=== PATIENT | male | born 1960 | race Caucasian/White ===

== ENCOUNTER 2019-10-09 11:20 | Outpatient (CLI) | payer OTHER, SELFPAY ==
--- NOTE | ~2019-10-09 | XR_ITS ---
EXAMINATION: XR chest 2V DATE: 10/09/2019 11:36 INDICATION: Shortness of breath TECHNIQUE: Frontal and lateral views of the chest are obtained COMPARISON: None available FINDINGS: The lungs are free of acute opacities. There is no pleural effusion or pneumothorax. The ca rdiomediastinal silhouette is normal. There are bridging osteophytes at multiple levels in the spine, consistent with diffuse idiopathic skeletal hyperostosis (DISH). IMPRESSION: 1. No acute cardiopulmonary abnormality. Reviewed, dictated and finalized at location A.
== END 2019-10-09 11:21 | disposition home or self-care (01) ==
LOC: ANHIMG 11:27
PROVIDERS: PCP Internal Medicine; Visit Provider Nurse Practitioner
DX: R06.02 Shortness of breath (principal)
CPT/HCPCS: 71046

== ENCOUNTER 2019-11-04 06:38 | Outpatient (CLI) | payer OTHER, SELFPAY ==
--- NOTE | 2019-11-04 07:13 | ECG_ITS ---
Measurements Intervals [place] Rate: 63 P: 52 NE: 178 QRS: 34 QRSD: 92 T: 36 QT: 321 QTc: 329 Interpretive Statements SINUS RHYTHM BASELINE ARTIFACT- I, III, AVL, AVF NORMAL ECG Electronically Signed On 11-04-2019 8:45:45 CDT by Oumar Chirinos D.O.
--- NOTE | 2019-11-04 07:13 | EST_ITS ---
Patient Info Name: Harley Hernandez Age: 59 years : 1960 Gender: Male Ht: 68 in Wt: 215 lbs BSA: 2.20 m2 HR: 71 bpm BP: 131 / 90 mmHg Heart Rhythm: Sinus Rhythm Exam Date: 11/04/2019 7:54 AM Exam Location: [facility] Patient Status: Outpatient Admit Date: 11/04/2019 Staff Ordering Physician: Norah May NP Cyanide Pot Hardener: Carmen Braun RDCS Attending Provider: Norah May NP Referring Physician: Lalo MANCILLA; Exercise Technologist: Michaela Panda RDCS Exercise Physician: Oumar Chirinos DO Exam Type: CA stress echo Study Info Indications R06.02 - Shortness of breath Treadmill exercise stress echocardiogram is performed. Summary 1. 1. Negative Noe exercise stress test for ischemic ST changes by ECG criteria. 2. 2. Good functional capacity, achieving 8.9 METs of workload. 3. 3. Hypertensive response to exercise. 4. 4. Appropriate HR response to exercise. 5. 5. Appropriate HR recovery at 1 minute post exercise. 6. 6. Negative stress echocardiogram for ischemia by wall motion analysis. 7. 7. Patient informed of the above results. Stress Echo Findings Left Ventricle Appropriate increase in LV endocardial thickening with systole. Appropriate augmentation of contractility with systole. No wall motion abnormality. Left Ventricle Normal LV systolic function, no wall motion abnormality. Protocol: Noe Stress ECG Details Stage: REST Duration (min): 2 min : 26 sec Speed (mph): 0.0 Grade (%): 0 HR (bpm): 68 SBP (mmHg): 131 DBP (mmHg): 90 METS: --- Stage: REST Duration (min): 25 min : 55 sec Speed (mph): 0.0 Grade (%): 0 HR (bpm): 78 SBP (mmHg): 131 DBP (mmHg): 90 METS: --- Stage: STAGE 1 Duration (min): 1 min : 0 sec Speed (mph): 1.7 Grade (%): 10 HR (bpm): 101 SBP (mmHg): 131 DBP (mmHg): 90 METS: --- Stage: STAGE 1 Duration (min): 2 min : 0 sec Speed (mph): 1.7 Grade (%): 10 HR (bpm): 112 SBP (mmHg): 131 DBP (mmHg): 90 METS: --- Stage: STAGE 1 Duration (min): 3 min : 0 sec Speed (mph): 1.7 Grade (%): 10 HR (bpm): 116 SBP (mmHg): 180 DBP (mmHg): 94 METS: --- Stage: STAGE 2 Duration (min): 1 min : 0 sec Speed (mph): 2.5 Grade (%): 12 HR (bpm): 128 SBP (mmHg): 180 DBP (mmHg): 94 METS: --- Stage: STAGE 2 Duration (min): 2 min : 0 sec Speed (mph): 2.5 Grade (%): 12 HR (bpm): 140 SBP (mmHg): 180 DBP (mmHg): 94 METS: --- Stage: STAGE 2 Duration (min): 3 min : 0 sec Speed (mph): 2.5 Grade (%): 12 HR (bpm): 148 SBP (mmHg): 220 DBP (mmHg): 107 METS: --- Stage: STAGE 3 Duration (min): 1 min : 0 sec Speed (mph): 3.4 Grade (%): 14 HR (bpm): 157 SBP (mmHg): 219 DBP (mmHg): 107 METS: --- Stage: STAGE 3 Duration (min): 1 min : 1 sec Speed (mph): 0.0 Grade (%): 0 HR (bpm): 157 SBP (mmHg): 219 DBP (mmHg): 107 METS: ---
== END 2019-11-04 06:39 | disposition home or self-care (01) ==
PROVIDERS: PCP Internal Medicine; Visit Provider Nurse Practitioner
DX: R06.02 Shortness of breath (principal); R05 Cough
CPT/HCPCS: 93005; 93351

== ENCOUNTER 2020-08-27 17:31 | Outpatient (CLI) | payer OTHER, SELFPAY | END 2020-08-27 17:32 | disposition home or self-care (01) | LOC: ANHCOVIDVC 17:31 | PROVIDERS: PCP Internal Medicine | DX: Z23 Encounter for immunization (principal) | CPT/HCPCS: 0001A; 91300 ==

== ENCOUNTER 2020-09-17 17:08 | Outpatient (CLI) | payer OTHER, SELFPAY | END 2020-09-17 17:09 | disposition home or self-care (01) | LOC: ANHCOVIDVC 17:08 | PROVIDERS: PCP Internal Medicine | DX: Z23 Encounter for immunization (principal) | CPT/HCPCS: 0002A; 91300 ==

== ENCOUNTER → 2020-12-06 15:58 | Outpatient (CLI) | payer OTHER, SELFPAY ==
--- NOTE | ~2020-12-06 | XR_ITS ---
EXAMINATION: XR knee LT min 4V DATE: 12/06/2020 16:25 INDICATION: Anteromedial left knee pain TECHNIQUE: Weight bearing anteroposterior and Joshi, sunrise, and flexed lateral views of the lef t knee were obtained COMPARISON: None. FINDINGS: Alignment is normal. No fracture. Joint spaces are normal. No joint effusion. Enthesophyte at the pr oximal pole of the patella. Soft tissues are unremarkable. IMPRESSION: 1.. Proximal patellar enthesophyte. Otherwise normal left knee radiographs. Reviewed, dictated and finalized at location A.
== END ==
PROVIDERS: PCP Internal Medicine; Visit Provider Clinical Nurse Specialist
DX: M25.569 Pain in unspecified knee (principal); M76.52 Patellar tendinitis, left knee
CPT/HCPCS: 73564

== ENCOUNTER 2021-02-25 16:34 | Emergency (ER) | payer OTHER, SELFPAY ==
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
[2021-02-25 16:37] VITALS: BP 184/90; PULSE 78; RESP 15; TEMP 36.6; O2SAT 98
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
[2021-02-25] MEDS: IBUPROFEN 600 MG TABLET PO (17:31)
[2021-02-25 18:41] VITALS: BP 174/103; PULSE 75; RESP 16; O2SAT 98
== END 2021-02-25 18:42 | disposition home or self-care (01) ==
PROVIDERS: Emergency Provider Emergency Medicine; PCP Internal Medicine
DX: S16.1XXA Strain of muscle, fascia and tendon at neck level, initial encounter (principal); E78.2 Mixed hyperlipidemia; E11.9 Type 2 diabetes mellitus without complications; M47.812 Spondylosis without myelopathy or radiculopathy, cervical region; I51.7 Cardiomegaly; M19.012 Primary osteoarthritis, left shoulder; M19.011 Primary osteoarthritis, right shoulder; Z79.84 Long term (current) use of oral hypoglycemic drugs; V49.40XA Driver injured in collision with unspecified motor vehicles in traffic accident, initial encounter
CPT/HCPCS: 70450; 71046; 72125; 73030; 99284; A9270

== ENCOUNTER 2021-03-29 17:08 | Outpatient (CLI) | payer OTHER, SELFPAY ==
--- NOTE | ~2021-03-29 | XR_ITS ---
XR chest 2V DATE: 03/29/2021 17:26 INDICATION: Cough. Nasal infection for 2 weeks. Occasional smoker. TECHNIQUE: PA and lateral views COMPARISON: 02/25/2021 AP and lateral chest 10/08/2021 view chest FINDINGS: Heart size is within normal range. Is aortic arch calcification and minimal aortic unfoldin g. No hilar or mediastinal enlargement. No pulmonary infiltrate or consolidation, pleural effusion or pulmonary vascular congestion or pneumo thorax. Diffuse idiopathic skeletal hyperostosis of the thoracic spine. IMPRESSION: No active cardiopulmonary disease Reviewed, dictated and finalized at location A.
== END 2021-03-29 17:09 | disposition home or self-care (01) ==
LOC: ANHIMG 17:12
PROVIDERS: PCP Internal Medicine; Visit Provider Nurse Practitioner
DX: R05.9 Cough, unspecified (principal); R06.02 Shortness of breath; M48.14 Ankylosing hyperostosis [Forestier], thoracic region
CPT/HCPCS: 71046

== ENCOUNTER 2021-04-08 13:43 | Outpatient (CLI) | payer OTHER, SELFPAY ==
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
== END 2021-04-08 13:44 | disposition home or self-care (01) ==
LOC: ANHIMG 13:52
PROVIDERS: PCP Internal Medicine; Visit Provider Nurse Practitioner
DX: M51.34 Other intervertebral disc degeneration, thoracic region (principal); M51.36 Other intervertebral disc degeneration, lumbar region
CPT/HCPCS: 72100

== ENCOUNTER 2021-07-15 11:48 | Emergency (ER) | payer OTHER, SELFPAY ==
[2021-07-15] VITALS (23 sets, daily range): BP systolic 120–164; BP diastolic 67–98; PULSE 63–90; RESP 13–28; TEMP 36.7; O2SAT 96–98
--- NOTE | 2021-07-15 13:56 | ECG_ITS ---
Measurements Intervals [place] Rate: 65 P: 42 NM: 184 QRS: 26 QRSD: 84 T: 31 QT: 373 QTc: 389 Interpretive Statements SINUS RHYTHM NORMAL ECG Electronically Signed On 07-15-2021 15:54:15 BOBBIN DUMPER by Oumar Chirinos D.O.
--- NOTE | 2021-07-15 14:26 | ED.GENADULT ---
HPI - General Adult General Chief complaint: Recheck/Abnormal Lab/Rx Stated complaint: high bp Time Seen by Provider: 07/15/21 13:07 Source: patient and family History of Present Illness HPI narrative: 61-year-old male history of hypertension presented to the emergency department for elevated blood pressures. Patient states since he had Covid on 06/26 that his blood pressures have been running higher. Patient states that he has had some intermittent leg swelling which he attributed to his blood pressures. Upon arrival in the emergency department patient denies any complaints at this time. Related Data Home Medications Medication Instructions Recorded Confirmed blood-glucose meter #1 each 05/01/19 05/03/21 Allergies Allergy/AdvReac Type Severity Reaction Status Date / Time No Known Allergies Allergy Verified 07/15/21 12:04 Review of Systems Review of Systems: CONSTITUTIONAL: Denies fever, chills, or sweats. EYES: Denies visual changes, redness, or discharge. ENT: Denies rhinorrhea, congestion, sore throat, or otalgia. CARDIOVASCULAR: Denies chest pain, palpitations. Has had some intermittent lower extremity swelling. RESPIRATORY: Denies cough or dyspnea. GASTROINTESTINAL: Denies abdominal pain, nausea, vomiting, or diarrhea. GENITOURINARY: Denies dysuria or hematuria. SKIN: Denies rash or itching. MUSCULOSKELETAL: Denies back pain, joint pain, or myalgia. NEUROLOGIC: Denies headache, numbness, or weakness. All systems reviewed & are unremarkable except as noted in HPI and below PMFSH Past Medical History Medical History Combined hyperlipidemia Tinea cruris Type 2 diabetes mellitus without complication, without long-term current use of insulin Family History Family History Mother Family history of osteoarthritis Hypertension Father Family history of heart disease in male family member before age 55 Diabetes mellitus Social History Social History Smoking status: Never smoker Tobacco type: cigars Alcohol intake: current Alcohol use details: occasional Exam Narrative: APPEARANCE: Well appearing, no pain, no distress, well-nourished. HEAD: normocephalic, atraumatic. EYES: PERRLA/EOMI, conjunctivae clear. THROAT: Pharynx clear, no exudate. NECK: Supple. No adenopathy, no masses. RESPIRATORY: Airway patent, respirations nonlabored. Clear to auscultation bilaterally, no rales, rhonchi, wheezing. CARDIOVASCULAR: Regular rate and rhythm without murmurs rubs or gallops. ABDOMINAL: Soft, nontender, nondistended, normal bowel sounds MUSCULOSKELETAL: Moves all extremities. Strength/ROM intact, No edema, No calf tenderness. NEURO: Alert. Cranial nerves II through XII intact. SKIN: Warm, dry. Normal Color Course Course Emergency Course: Patient and family were updated on the results of the labs and on the discussion with the patient's primary care physician. I did walk him through all of the medication changes. These were also written down in their discharge notes. All questions and concerns were addressed. Both patient and family were comfortable with the plan for discharge and close follow-up. Consultations Consultation #1: Discussed the case with the patient's primary care physician and he did recommend increasing the patient's lisinopril from 10 to 20 mg daily. Also recommended adding hydrochlorothiazide 12.5 mg p.o. twice daily. Also recommended providing 0.1 mg Klonopin for as needed for blood pressures greater than 180/110 Time: 14:27 Vital Signs Vital signs: Vital Signs Temperature 98.0 F 07/15/21 12:00 Pulse Rate 90 07/15/21 12:00 Respiratory Rate 14 07/15/21 12:00 Blood Pressure 164/90 H 07/15/21 12:00 Pulse Oximetry 98 07/15/21 12:00 Temperature 98.0 F 07/15/21 12:00 Pulse Rate 75 07/15/21 15:36 Respi
[2021-07-15 14:30] LABS: Basophils Absolute Auto 0.1 K/mm3 (0.0-0.1); Basophils Percent Auto 1.4 % (0.2-1.2); Eosinophils Absolute Auto 0.3 K/mm3 (0-0.3); Eosinophils Percent Auto 4.4 % (0-4.4); Hematocrit 42.3 % (42.0-52.0); Hemoglobin 14.2 g/dL (14.0-18.0); Immature Granulocyte Absolute 0.01 K/mm3 (0.00-0.031); Immature Granulocyte Percent A 0.2 % (0-0.5); Lymphocytes Percent Auto 25.2 % (18.3-44.2); Mean Corpuscular HGB Conc 33.6 g/dl (32-36); Mean Corpuscular Hemoglobin 29.1 pg (26-34); Mean Corpuscular Volume 86.7 fl (80-100); Mean Platelet Volume 9.4 fl (7.4-10.4); Monocytes Absolute Auto 0.5 K/mm3 (0.1-0.6); Monocytes Percent Auto 7.7 % (2.6-8.5); Neutrophils Absolute Auto 3.9 K/mm3 (1.3-6.7); Neutrophils Percent Auto 61.1 % (45.5-73.1); Platelet Count Result 238 k/mm3 (150-375); Red Blood Count 4.88 M/mm3 (4.6-6.20); Red Cell Distribution Width 13.8 % (11.5-14.5); White Blood Count 6.4 K/mm3 (4.5-10.0)
[2021-07-15 14:37] LABS: Alanine Aminotransferase 29 U/L (4-50); Albumin Level 4.2 g/dL (3.5-5.1); Alkaline Phosphatase 72 U/L (38-126); Anion Gap 10 mmol/L (8-16); Aspartate Amino Transferase 34 U/L (17-59); Bilirubin,Total 0.8 mg/dL (0.2-1.3); Blood Urea Nitrogen 18 mg/dL (9-20); Calcium 9.1 mg/dL (8.4-10.2); Carbon Dioxide 23 mmol/L (22-30); Chloride 106 mmol/L (98-107); Estimated CRCL calculation 90 ml/min; Estimated Glomerular Filt Rate > 60; Glucose 161 mg/dL (65-110); Potassium 4.3 mmol/L (3.4-5.0); Sodium 139 mmol/L (137-145)
[2021-07-15] MEDS: hydroCHLOROthiazide 12.5 MG CAPSULE PO (14:53)
[2021-07-15 15:01] LABS: Add Urine Microscopic? NO; Appearance Urine Clear (Clear); Bilirubin Urine Negative (Negative); Blood Urine Negative (Negative); Color Urine Yellow (Yellow); Glucose Urine UA Negative (Negative); Ketones Urine Negative (Negative); Leukocyte Esterase Ur Negative LEU/UL (Negative); Nitrate Urine Negative (Negative); Protein Urine Negative (Negative); Specific Grav Ur 1.019 (1.001-1.035); Urobilinogen Urine Negative mg/dL (<2.0)
== END 2021-07-15 13:35 | disposition home or self-care (01) ==
PROVIDERS: Emergency Provider Emergency Medicine; PCP Internal Medicine
DX: I10 Essential (primary) hypertension (principal); E78.2 Mixed hyperlipidemia; E11.9 Type 2 diabetes mellitus without complications; Z86.16 Personal history of COVID-19; Z79.84 Long term (current) use of oral hypoglycemic drugs
CPT/HCPCS: 36415; 80053; 81003; 85025; 93005; 99283; A9270

== ENCOUNTER 2021-07-20 16:00 | Outpatient (RCR) | payer OTHER, SELFPAY ==
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
--- NOTE | 2021-05-16 15:45 | PCPTNOTE ---
Patient did not show up for scheduled appointment this date. Called and spoke with Pt, he apologized and thought his appointment was at 16:00. Pt has needling session at 16:00, advised the Pt to still come in for his session, and we will continue with therapy treatment 05/23/21 @ 15:30.
--- NOTE | 2021-05-23 16:08 | PTOPEVAL ---
PHYSICAL THERAPY RE-EVALUATION 05-23-21 Refer to the clinical summary below for his status with his neck today, compared to the initial evaluation. The treatment for his neck will be discharged at this time. At the next session, he will be evaluated for the diagnosis of back pain, which was included on his original PT order. Thank you for referring Harley Hernandez to [facility].? Please review, sign, date and return this updated plan of care KUSH. I agree with and certify that the following plan of care is medically necessary. Referring Physician Date Attending Provider: Mell Bauer NP Document 05/23/21 15:30 BRIDGET (Rec: 05/23/21 16:08 BRIDGET [id number]) Assessment Status Re-evaluation Subjective Information Prasanth reports: neck is better-- Query Text:As Reported By Patient/ pain is there, but less when Family do the exercises and sit with neck in correct position; dry needling really helped the tightness to be less, but have arthritis and it comes back; also have shoulder and back pain; feels like he is ready to be done with his neck and start treatment on his back; Pain Assessment Timing of Pain Assessment Timing of Pain Assessment Assessment Pain Scale Pain Scale Used Numeric (1 - 10) Self Report Pain Assessment Bilateral Spine, Cervical Reported Pain Level 1 Pain Frequency Chronic Other Pain Description stiffness, dull pain; R side base of neck; Lowest Pain Intensity 1 Greatest Pain Intensity 3 Other Pain Aggravating Factors cold weather, damp and rainy; Pain Behaviors None Pain Score Pain Score 1: Self Report Additional Pain Score Comments with sleeping, awaken from sleep due to R shoulder pain, 1-2 x/night, NOT due to neck hurting; have not had any headaches due to neck pain; have had a lot of stress at home and work, which has tightened the muscles more; going to see ortho dr for R shoulder; Oswestry self assessment functional score of 18% limitation in activity level Interventions Used Interventions Used By Clinicians Education,Exercise Pain Relief Interventions Used By Heat Patient Other Alleviating Interventions
--- NOTE | 2021-06-06 10:05 | PCPTNOTE ---
Addendum entered by Ashley Brown, PT 06/06/21 10:09: THIS WAS WRITTEN IN ERROR----Pt is to have his back evaluation on 06-09-21 Original Note: PHYSICAL THERAPY DISCHARGE 06-06-21 Attending Provider: Mell Bauer NP Patient:Harley Hernandez Date of :1960 Mr. Hernandez has not returned for any further treatments since the reevaluation on 05/23/2021, therefore he will be discharged at this time. Refer to that report for his status at the last appointment. Thank you for referring Prasanth to [facility]. Please review, sign, date and return this discharge summary KUSH. I have been updated about the patient's current status and I agree with discharge from the above service at this time. Referring Physician Date
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
--- NOTE | 2021-07-19 07:19 | PCPTNOTE ---
Patient did not show up for scheduled appointment this date; called who answered the phone stating he forgot and thought it was on Sunday. Reminded about re-eval on Sunday.
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
== END 2021-07-20 23:59 | disposition home or self-care (01) ==
LOC: ANHPT 16:00
PROVIDERS: PCP Internal Medicine; Visit Provider Nurse Practitioner
DX: M54.2 Cervicalgia (principal); M54.50 Low back pain, unspecified
CPT/HCPCS: 20560; 97014; 97110; 97140; 97161; 97162; G0283

== ENCOUNTER 2021-10-02 09:30 | Outpatient (CLI) | payer OTHER, SELFPAY ==
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
== END 2021-10-02 09:31 | disposition home or self-care (01) ==
PROVIDERS: PCP Internal Medicine; Visit Provider Nurse Practitioner
DX: M47.896 Other spondylosis, lumbar region (principal)
CPT/HCPCS: 72148

== ENCOUNTER 2022-01-06 17:06 | Emergency (ER) | payer OTHER, SELFPAY ==
[2022-01-06 17:15] VITALS: BP 170/103; PULSE 87; RESP 20; TEMP 36.8; O2SAT 97
--- NOTE | 2022-01-06 17:22 | ED.EAR ---
HPI - Ear Problem General Chief complaint: Ear Stated complaint: Bilateral Ear Irritation,Sinus Time Seen by Provider: 01/06/22 17:22 Source: patient, RN notes reviewed and old records reviewed Mode of arrival: ambulatory Limitations: no limitations History of Present Illness HPI Narrative: 61-year-old male who presents to [facility] with complaints of raw throat, cough, bilateral ear pain, and nasal drainage since Sunday evening. 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 Patient reports that he has had sinus infections in the past and this is how he is feeling now and he is getting ready to go on vacation in a week and he wants to be well. His ears feel like he has fluid in them and he feels like there is drainage in them, he has been swimming lately MD Complaint: ear pain, ear discharge and other (raw throat, cough, and nasal drainage.) Duration: constant Severity: moderate Discharge from ear: Reports no Associated symptoms ear: external ear tenderness, rhinorrhea and other (feels like fluid in ears) Related Data Home Medications Medication Instructions Recorded Confirmed blood-glucose meter (Accu-Chek #1 ea 05/01/19 01/06/22 Rosemarie Plus Meter) meloxicam 15 mg tablet 1 tablet PO DAILY 01/06/22 01/06/22 Allergies Allergy/AdvReac Type Severity Reaction Status Date / Time No Known Allergies Allergy Verified 01/06/22 17:09 Review of Systems Review of Systems: CONSTITUTIONAL: Denies fever, chills, or sweats. EYES: Denies visual changes, redness, or discharge. ENT: Positive for rhinorrhea, congestion, sore throat, bilateral otalgia. CARDIOVASCULAR: Denies chest pain, palpitations, or edema. RESPIRATORY: Positive for cough denies dyspnea. GASTROINTESTINAL: Denies abdominal pain, nausea, vomiting, or diarrhea. GENITOURINARY: Denies dysuria or hematuria. SKIN: Denies rash or itching. MUSCULOSKELETAL: Denies back pain, joint pain, or myalgia. NEUROLOGIC: Denies headache, numbness, or weakness. PSYCHIATRIC: Denies anxiety or depression. All systems reviewed & are unremarkable except as noted in HPI and below PMFSH Past Medical History Medical History (Updated 01/08/22 @ 02:04 by Candy Huffman NP) Combined hyperlipidemia Facet arthropathy, lumbar Hole in intestines surgical repair Tinea cruris Type 2 diabetes mellitus without complication, without long-term current use of insulin Family History Family History Mother Family history of osteoarthritis Hypertension Father Family history of heart disease in male family member before age 55 Diabetes mellitus Social History Social History (Updated 01/06/22 @ 17:59 by Candy Huffman NP) Smoking status: Never smoker Tobacco type: cigars Alcohol intake: current Alcohol use details: occasional Living arrangements: with family Gender identity (if verbalized by the patient): Male Comments At time of signature, agree with nursing past medical, surgical, social and family history. There is no relevant family history pertinent to the presenting complaint Exam Narrative: GENERAL: Well-appearing, well-nourished, and in no acute distress. HEAD: Normocephalic, atraumatic. EYES: PERRLA and EOMI. ENT: Nares red, clear rhinorrhea no epistaxis. Mucous membranes moist.sinus pressure,sinus pressure TM's with dull light reflex, with bilateral ear canals red and excoriate no drainage noted, throat red with no lesions or exudates or tonsil swelling uvula red and swollen midline NECK: Supple. no lymphadenopathy CHEST: Clear to auscultation. No respiratory distress.cough SAO2 97% on room air HEART: Regular rate and rhythm. No murmur heard. Normal peripheral pulses. ABDOMEN: Soft, nontender, nondistended, normal active bowel sounds. EXTREMITIES: Normal range of motion. No edema. SKIN: Warm, dry, no r
[2022-01-06 17:50] VITALS: BP 148/92
--- NOTE | 2022-01-06 17:51 | PC.NURSE ---
PT WENT HOME WITH BLOOD PRESSURE OF 148/92
== END 2022-01-06 17:47 | disposition home or self-care (01) ==
PROVIDERS: Emergency Provider Registered Nurse; PCP Internal Medicine
DX: H60.93 Unspecified otitis externa, bilateral (principal); J32.9 Chronic sinusitis, unspecified; E78.2 Mixed hyperlipidemia; E11.9 Type 2 diabetes mellitus without complications; Z79.84 Long term (current) use of oral hypoglycemic drugs
CPT/HCPCS: 99213; G0463

== ENCOUNTER 2022-03-11 07:32 | Outpatient (CLI) | payer OTHER, SELFPAY ==
--- NOTE | ~2022-03-11 | MR_ITS ---
EXAMINATION: MR shoulder RT wo con DATE: 03/11/2022 08:24 INDICATION: Right shoulder pain. TECHNIQUE: Magnetic resonance imaging (MRI) of the right shoulder was performed without intravenous c ontrast. Sequences included axial PD-weighted FS FSE, coronal oblique PD-weighted FS FSE and T2-weigh juan manuel FS FSE, and sagittal oblique T2-weighted FS FSE and T1-weighted FSE. COMPARISON: Right shoulder radiographs 02/25/2021 FINDINGS: Coracoacromial arch: The acromion undersurface is curved in morphology (type II). There is severe acromioclavicular joint osteoarthritis including inferiorly directed osteophytes. There is mild subacromial/subdeltoid bursit is. Rotator cuff: There is severe supraspinatus tendinopathy with shallow bursal sided fraying. There is mild infraspin atus tendinopathy. Teres minor tendon is normal. Subscapularis tendon is normal. There is no asymmetr ic fatty atrophy of the rotator cuff muscle bellies. Biceps tendon and glenoid labrum: Biceps tendon is in bicipital groove. Intra-articular biceps tendon is normal. The glenoid labrum is normal. Fluid: There is a small glenohumeral joint effusion. Bones/cartilage: There is shallow partial-thickness cartilage loss of glenoid and humeral head. Osteophytes are noted. IMPRESSION: 1. Severe rotator cuff tendinopathy with shallow bursal-sided fraying of supraspinatus tendon. 2. Mild glenohumeral joint chondrosis. 3. Severe acromioclavicular joint osteoarthritis. 4. Small glenohumeral joint effusion. 5. Mild subacromial/subdeltoid bursitis. Reviewed, dictated and finalized at location A. IMPRESSION: 1. Severe rotator cuff tendinopathy with shallow bursal-sided fraying of supras pinatus tendon. 2. Mild glenohumeral joint chondrosis. 3. Severe acromioclavicular joint osteoarthritis. 4. Small glenohumeral joint effusion. 5. Mild subacromial/subdeltoid bursitis.
== END 2022-03-11 07:33 | disposition home or self-care (01) ==
PROVIDERS: PCP Internal Medicine; Visit Provider Physician Assistant
DX: M19.011 Primary osteoarthritis, right shoulder (principal); M25.411 Effusion, right shoulder; M75.51 Bursitis of right shoulder
CPT/HCPCS: 73221

== ENCOUNTER 2022-05-24 18:08 | Emergency (ER) | payer OTHER, SELFPAY ==
[2022-05-24 18:49] VITALS: BP 168/86; PULSE 76; RESP 16; TEMP 36.8; O2SAT 100
--- NOTE | 2022-05-24 19:36 | PC.NURSE ---
Pt left at 1929 stating that his pain pump is no longer leaking. Will return if it starts to leak again. Stable on d/c.
== END 2022-05-24 19:29 | disposition left against medical advice (07) ==
PROVIDERS: PCP Internal Medicine
DX: M25.511 Pain in right shoulder (principal)
CPT/HCPCS: 99199

== ENCOUNTER 2022-06-22 01:32 | Day surgery (SDC) | payer OTHER, SELFPAY ==
[2022-06-08 15:14] VITALS: BMI 35.5
--- NOTE | 2022-06-21 15:00 | PM.HPGS ---
History of Present Illness History of Present Illness Consent: Risks, benefits, and alternatives have been discussed and questions answered. Patient agrees to proceed with procedure. Chief complaint: hx of colon polyps Narrative: Harley Hernandez is a 62 year old male Referred for colon cancer screening. His last colonoscopy was about 9 years ago, at which time an adenomatous polyp was removed from the ileocecal valve area Review of Systems Review of Systems: All systems reviewed & are unremarkable except as noted in HPI and below PMFSH Past Medical History Medical History Combined hyperlipidemia Facet arthropathy, lumbar Hole in intestines surgical repair Tinea cruris Type 2 diabetes mellitus without complication, without long-term current use of insulin Family History Family History Mother Family history of osteoarthritis Hypertension Father Family history of heart disease in male family member before age 55 Diabetes mellitus Social History Social History Smoking status: Never smoker Tobacco type: cigars Additional smoking assessment comments: still smokes an occasional cigar Alcohol intake: never Alcohol use details: occasional Substance use type: does not use Living arrangements: with family Gender identity (if verbalized by the patient): Male Spiritual care concerns: No Meds Home Medications and Allergies Home Medications Medication Instructions Recorded Confirmed Type blood-glucose meter (Accu-Chek #1 ea 05/01/19 04/23/22 History Rosemarie Plus Meter) albuterol sulfate 90 mcg/actuation 2 puff inhalation Q4-6H PRN 10/09/19 06/08/22 Rx aerosol inhaler shortness of breath or wheezing #18 grams clonidine HCl 0.1 mg tablet 0.1 mg PO Q1H PRN hypertensive 07/15/21 06/08/22 Rx emergency #14 tabs amlodipine 10 mg tablet 10 mg PO DAILY #90 tabs 08/16/21 06/08/22 Rx blood sugar diagnostic (Accu-Chek #100 ea 10/06/21 04/23/22 Rx Rosemarie Plus test strips) metformin 1,000 mg tablet 1,000 mg PO BID #180 tabs 12/13/21 06/08/22 Rx meloxicam 15 mg tablet 1 tablet PO DAILY 01/06/22 06/08/22 History ketoconazole 2 % topical cream 1 applic topical DAILY PRN tinea 02/20/22 06/08/22 Rx cruris #30 grams hydrochlorothiazide 12.5 mg capsule 12.5 mg PO BID #180 caps 04/05/22 06/08/22 Rx glimepiride 1 mg tablet See Rx Instructions .Route 05/05/22 06/08/22 Rx .COMPLEX #90 tabs allopurinol 300 mg tablet See Rx Instructions .Route 05/11/22 06/08/22 Rx .COMPLEX #90 tabs alprazolam 0.5 mg tablet (Xanax) 0.5 mg PO BID PRN anxiety #20 tabs 05/16/22 06/08/22 Rx lisinopril 40 mg tablet 40 mg PO DAILY #90 tabs 05/16/22 06/08/22 Rx atorvastatin 80 mg tablet See Rx Instructions .Route 06/05/22 06/08/22 Rx .COMPLEX #90 tabs Allergies Allergy/AdvReac Type Severity Reaction Status Date / Time No Known Allergies Allergy Verified 06/22/22 09:13 Exam Resp: Auscultation: clear to auscultation bilaterally Cardio: Rate: regular rate Rhythm: regular rhythm GI: GI Palp: Yes Soft to palpation and No Tenderness to palpation present (GI) Assessment and Plan Assessment and plan (1) Screening for colon cancer: Code(s): Z12.11 - Encounter for screening for malignant neoplasm of colon Status: Acute Assessment and Plan: Colonoscopy with possible biopsy or polypectomy or cautery or injection of substances.
[2022-06-22 09:13] VITALS: BP 157/103; PULSE 82; RESP 18; TEMP 36.3; O2SAT 97
[2022-06-22] MEDS: LACTATED RINGERS 1,000 ML 150 ML IV CONT (09:28)
[2022-06-22 09:29] LABS: Glucose Point of Care 151 mg/dl (65-105)
--- NOTE | 2022-06-22 10:18 | WPDANESEPPF ---
Anes - Initial Pre Proc Eval Procedure: Operation Date: 06/22/22 10:30 Proposed Procedures p Screening Colonoscopy - Harley Hodge MD Date/Time: 06/22/22 10:18 Surgeon: Harley Hodge MD Pre Op Diagnosis: hx of colon polyps Patient Data Age: 62 Gender: M Height: 1.73 m Weight: 105 kg Last Vital Signs Temp 97.4 F L 06/22/22 09:13 Pulse 82 06/22/22 09:13 Resp 18 06/22/22 09:13 BP 157/103 H 06/22/22 09:13 Pulse Ox 97 06/22/22 09:13 O2 Del Method Room Air 06/22/22 09:13 Allergies Allergy/AdvReac Type Severity Reaction Status Date / Time No Known Allergies Allergy Verified 06/22/22 09:13 Home Medications Medication Instructions Recorded Confirmed Type blood-glucose meter (Accu-Chek #1 ea 05/01/19 04/23/22 History Rosemarie Plus Meter) albuterol sulfate 90 mcg/actuation 2 puff inhalation Q4-6H PRN 10/09/19 06/08/22 Rx aerosol inhaler shortness of breath or wheezing #18 grams clonidine HCl 0.1 mg tablet 0.1 mg PO Q1H PRN hypertensive 07/15/21 06/08/22 Rx emergency #14 tabs amlodipine 10 mg tablet 10 mg PO DAILY #90 tabs 08/16/21 06/08/22 Rx blood sugar diagnostic (Accu-Chek #100 ea 10/06/21 04/23/22 Rx Rosemarie Plus test strips) metformin 1,000 mg tablet 1,000 mg PO BID #180 tabs 12/13/21 06/08/22 Rx meloxicam 15 mg tablet 1 tablet PO DAILY 01/06/22 06/08/22 History ketoconazole 2 % topical cream 1 applic topical DAILY PRN tinea 02/20/22 06/08/22 Rx cruris #30 grams hydrochlorothiazide 12.5 mg capsule 12.5 mg PO BID #180 caps 04/05/22 06/08/22 Rx glimepiride 1 mg tablet See Rx Instructions .Route 05/05/22 06/08/22 Rx .COMPLEX #90 tabs allopurinol 300 mg tablet See Rx Instructions .Route 05/11/22 06/08/22 Rx .COMPLEX #90 tabs alprazolam 0.5 mg tablet (Xanax) 0.5 mg PO BID PRN anxiety #20 tabs 05/16/22 06/08/22 Rx lisinopril 40 mg tablet 40 mg PO DAILY #90 tabs 05/16/22 06/08/22 Rx atorvastatin 80 mg tablet See Rx Instructions .Route 06/05/22 06/08/22 Rx .COMPLEX #90 tabs Laboratory Tests 06/22/22 09:26 POC Capillary Glucose 151 mg/dl H mg/dl (65-105) Patient hx anesthesia problems: none Family hx anesthesia problems: none Results Review: All pre-operative results and documents have been reviewed as part of the pre-operative evaluation. [facility] Past Medical History Medical History Combined hyperlipidemia Facet arthropathy, lumbar Hole in intestines surgical repair Tinea cruris Type 2 diabetes mellitus without complication, without long-term current use of insulin Family History Family History Mother Family history of osteoarthritis Hypertension Father Family history of heart disease in male family member before age 55 Diabetes mellitus Social History Social History Smoking status: Never smoker Tobacco type: cigars Additional smoking assessment comments: still smokes an occasional cigar Alcohol intake: never Alcohol use details: occasional Substance use type: does not use Living arrangements: with family Gender identity (if verbalized by the patient): Male Spiritual care concerns: No Anes - Eval Final PreProcedure Day of Procedure 06/22/22 10:18 Patient weight: obese Heart: regular rate and rhythm Lungs: clear to auscultation Airway: Mallampati scale class II Neurological: alert and oriented Last oral intake: >/= 8 hours ASA classification: III Emergent: no Anesthetic plan: proceed Anesthesia type and monitoring: general GIVS and standard monitoring Results Review: All pre-operative results and documents have been reviewed as part of the pre-operative evaluation. Informed Consent: The patient's anesthetic plan and its attendant risks and benefits were discussed with the patient/family/POA. Questions were solicited and answers provi
[2022-06-22 10:43] VITALS: BP 105/56; PULSE 74; RESP 24; O2SAT 95
[2022-06-22 10:53] VITALS: BP 126/68; PULSE 77; RESP 24; O2SAT 96
[2022-06-22 11:03] VITALS: BP 126/83; PULSE 70; RESP 20; O2SAT 98
== END 2022-06-22 11:12 | disposition home or self-care (01) ==
PROVIDERS: PCP Internal Medicine; Visit Provider Internal Medicine Gastroenterology
PROC: 0DJD8ZZ Inspection of Lower Intestinal Tract, Via Natural or Artificial Opening Endoscopic (ICD-10-PCS; CPT 45378; principal; 2022-06-22 10:30)
DX: Z12.11 Encounter for screening for malignant neoplasm of colon (principal); K57.30 Diverticulosis of large intestine without perforation or abscess without bleeding; K62.1 Rectal polyp; E78.2 Mixed hyperlipidemia; E11.9 Type 2 diabetes mellitus without complications; Z79.84 Long term (current) use of oral hypoglycemic drugs; Z79.51 Long term (current) use of inhaled steroids; Z72.0 Tobacco use; E66.9 Obesity, unspecified; Z68.35 Body mass index [BMI] 35.0-35.9, adult
CPT/HCPCS: 45380; 82948; 88305; J2704; J7120

== ENCOUNTER 2022-08-10 08:15 | Outpatient (RCR) | payer OTHER, SELFPAY ==
[2022-05-30 09:34] VITALS: BP_SYST 90
--- NOTE | 2022-05-30 10:25 | PTOPEVAL1 ---
Assessment and note entered by Sarah Verma, PT, DPT Evaluation Information Assessment Status Evaluation Diagnosis R RTC repair Onset 05/22/22 Subjective Information Pt had a R RTC repair on 05/22/22. 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 He states his pain has been well managed. Reported Pain Level Pain Score 0: Self Report Assessment PT Clinical Summary Harley Rader presents to therapy today for his initial evaluation following a R RTC repair on . Today he reports pain that is well managed with rest and ice. He demonstrates normal wrist and elbow motion. He was able to be passive moved to 90 deg in both flexion and scaption without an increase in pain. Skilled physical therapy services are indicated to progress ROM and strength as protocol allows, to address shoulder stability, and to return to baseline function. Plan of Care Interventions Electrical Stimulation,Hot Pack/Cold Pack,Manual Therapy,Neuro Re-education,Patient/Caregiver Educati,Therapeutic Activities,Therapeutic Exercise PT Services Indicated Yes Treatment Frequency and 2x/wk for 10 wks Duration These treatments will address the objective and functional deficits as defined above. The patient will be advanced safely and appropriately in order for the patient to progress towards his/her prior level of function. Additional exercises will be introduced and as well as a comprehensive home exercise program upon discharge, if needed, ?to ensure carryover of functional gains achieved in the clinic. This treatment plan has been reviewed and agreement upon by the patient.
[2022-07-07 08:03] VITALS: BP_SYST 110
--- NOTE | 2022-07-07 08:56 | PTOPPROGNS ---
Assessment and note entered by Sarah Verma, PT, DPT Evaluation Information Assessment Status Progress Diagnosis R RTC repair Onset 05/22/22 Subjective Information Pt states things are overall going good. He states he is usually has a dull pain that feels like tightness. He states he is still caution when picking up anything with significant weight. He still feels like he is lacking strength. Pt reports 50-60% improvement in overall symptoms. Assessment PT Clinical Summary Harley Rader presents to therapy today for his progress report following 11 visits of skilled therapy to treat his R RTC repair performed on . Today he demonstrates great progress. He demonstrates active flexion to 140 deg and active scaption to 148 deg. He demonstrates gross strength grossly 4/5 and demonstrates good functional strength. He continues to have ROM and strength deficits when compared to his uninvolved side. He is progress well through his surgical protocol and with his therapy goals. Continuation of skilled therapy services are indicated to continue progressing to therapy and protocol goals , to limit pain, and to return to baseline function. Plan of Care Interventions Electrical Stimulation,Hot Pack/Cold Pack,Manual Therapy,Neuro Re-education,Patient/Caregiver Educati,Therapeutic Activities,Therapeutic Exercise PT Services Indicated Yes These treatments will address the objective and functional deficits as defined above. The patient will be advanced safely and appropriately in order for the patient to progress towards his/her prior level of function. Additional exercises will be introduced and as well as a comprehensive home exercise program upon discharge, if needed, ?to ensure carryover of functional gains achieved in the clinic. This treatment plan has been reviewed and agreement upon by the patient.
--- NOTE | 2022-08-08 08:40 | PCPTNOTE ---
Patient did not show up for scheduled appointment this date. Called and spoke with the patient, he states he got his dates confused. He has been rescheduled.
--- NOTE | 2022-08-10 08:42 | PTOPDC ---
Assessment and note entered by Loretta Roman DPT Evaluation Information Assessment Status Discharge Diagnosis R RTC repair Onset 05/22/22 Subjective Information Overall reports his shoulder is doing well with therapy. Highest pain in last week 2-3/10 and lowest 0/10. Gets some soreness with activity. Returns to doctor Sunday. Has not lifted anything severely heavy yet. 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 Still has some difficulty sleeping on it. Reports no limitations with cooking, cleaning, dressing, or bathing. Reported Pain Level Pain Score 1: Self Report Assessment PT Clinical Summary The patient has made excellent progress in therapy . He reports decreased pain to only 3/10 highest and no limitations with ADL's. 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 He demonstrates improved strength to near full in all planes and improved range of motion, only significant limitation is internal rotation at this time. Due to his progress, plan for discharge at this time. He has been educated to continue his HEP to further improve strength and motion and to follow up with MD and/or PT as needed. Plan of Care PT Services Indicated No
== END 2022-08-10 12:52 | disposition home or self-care (01) ==
LOC: ANHGOSHPT 08:15
PROVIDERS: PCP Internal Medicine; Visit Provider Orthopaedic Surgery
DX: Z48.89 Encounter for other specified surgical aftercare (principal); Z98.890 Other specified postprocedural states
CPT/HCPCS: 97014; 97110; 97112; 97140; 97161; 97530; G0283

== ENCOUNTER 2023-08-28 16:13 | Outpatient (CLI) | payer OTHER, SELFPAY ==
[2023-08-28 18:58] LABS: Anion Gap 6 mmol/L (8-16); Blood Urea Nitrogen 37 mg/dL (9-20); Calcium 9.7 mg/dL (8.4-10.2); Carbon Dioxide 28 mmol/L (22-30); Chloride 107 mmol/L (98-107); Estimated Glomerular Filt Rate 48; Glucose 121 mg/dL (65-110); Potassium 4.4 mmol/L (3.4-5.0); Sodium 141 mmol/L (137-145)
[2023-08-28 19:29] LABS: Hemoglobin A1C 7.6 % (<5.7)
== END 2023-08-28 16:14 | disposition home or self-care (01) ==
PROVIDERS: PCP Internal Medicine; Visit Provider Clinical Nurse Specialist
DX: E11.9 Type 2 diabetes mellitus without complications (principal); I11.0 Hypertensive heart disease with heart failure
CPT/HCPCS: 36415; 80048; 83036

== ENCOUNTER 2023-11-06 15:56 | Outpatient (CLI) | payer OTHER, SELFPAY ==
--- NOTE | ~2023-11-06 | US_ITS ---
EXAMINATION: US soft tissue upper back DATE: 11/06/2023 16:20 INDICATION: Localized swelling, mass and lump, right upper back. TECHNIQUE: Multiple grayscale and Doppler ultrasound images of the back were obtained. COMPARISON: None FINDINGS: The patient's concern in the right back, there is a 7 x 7 x 5 mm hypoechoic subcutaneous ma ss. IMPRESSION: 1. 7 mm hypoechoic subcutaneous mass in the right back. Imaging findings are nonspecific, but the mos t likely diagnosis is sebaceous cyst. Reviewed, dictated and finalized at location E. IMPRESSION: 1. 7 mm hypoechoic subcutaneous mass in the right back. Imaging findings are no nspecific, but the most likely diagnosis is sebaceous cyst.
== END 2023-11-06 15:57 ==
PROVIDERS: PCP Nurse Practitioner; Visit Provider Nurse Practitioner
DX: R22.9 Localized swelling, mass and lump, unspecified (principal)
CPT/HCPCS: 76604

== ENCOUNTER 2024-04-08 15:58 | Outpatient (CLI) | payer OTHER, SELFPAY ==
[2024-04-08 19:15] LABS: Anion Gap 9 mmol/L (4-12); Blood Urea Nitrogen 26 mg/dL (9-20); Calcium 9.5 mg/dL (8.4-10.2); Carbon Dioxide 28 mmol/L (22-30); Chloride 102 mmol/L (98-107); Estimated Glomerular Filt Rate > 60; Glucose 91 mg/dL (65-110); Potassium 4.1 mmol/L (3.4-5.0); Sodium 139 mmol/L (137-145)
[2024-04-08 21:14] LABS: Hemoglobin A1C 6.9 % (<5.7)
== END 2024-04-08 15:59 | disposition home or self-care (01) ==
LOC: ANHGOSHLAB 16:00
PROVIDERS: PCP Nurse Practitioner; Visit Provider Clinical Nurse Specialist
DX: E11.9 Type 2 diabetes mellitus without complications (principal)
CPT/HCPCS: 36415; 80048; 83036

== ENCOUNTER 2024-10-06 14:49 | Emergency (ER) | payer OTHER, SELFPAY ==
--- NOTE | ~2024-10-06 | XR_ITS ---
XR chest 2V Ordering provider: Tone Leyva MD History: 64 years Male with . chest pain SINCE SUNDAY . Comparison: March 29, 2021 FINDINGS: MEDIASTINUM: The cardiac silhouette is not enlarged. LUNGS: No infiltrates, effusions or pneumothorax. Prominent markings in the left lower lobe. OTHER: No free air under the diaphragm. Degenerative changes of the spine. IMPRESSION: No acute cardiopulmonary pathology. Reviewed, dictated and finalized at location A.
--- NOTE | 2024-10-06 14:51 | ECG_ITS ---
Test Date: 2024-10-06 14:56:06 Measurements Intervals [place] Rate: 76 P: 42 [place]: 178 QRS: 24 QRSD: 93 T: 18 QT: 358 QTc: 403 Interpretive Statements SINUS RHYTHM DELAYED PRECORDIAL R/S TRANSITION BORDERLINE ST-T WAVE ABNORMALITY- INFERIOR LEADS BORDERLINE ECG No previous ECG available for comparison Electronically Signed On 10-06-2024 15:18:35 CDT by Oumar Chirinos D.O.
[2024-10-06 15:17] LABS: Basophils Absolute Auto 0.1 K/mm3 (0.0-0.1); Basophils Percent Auto 0.9 % (0.2-1.2); Eosinophils Absolute Auto 0.3 K/mm3 (0-0.3); Eosinophils Percent Auto 3.4 % (0-4.4); Hematocrit 42.4 % (42.0-52.0); Hemoglobin 14.2 g/dL (14.0-18.0); Immature Granulocyte Absolute 0.02 K/mm3 (0.00-0.031); Immature Granulocyte Percent A 0.2 % (0-0.5); Lymphocytes Absolute Auto 1.77 K/mm3 (0.9-3.2); Lymphocytes Percent Auto 22.1 % (18.3-44.2); Mean Corpuscular HGB Conc 33.5 g/dl (32-36); Mean Corpuscular Hemoglobin 29.5 pg (26-34); Mean Platelet Volume 10.1 fl (7.4-10.4); Monocytes Absolute Auto 0.6 K/mm3 (0.1-0.6); Monocytes Percent Auto 7.6 % (2.6-8.5); Neutrophils Absolute Auto 5.3 K/mm3 (1.3-6.7); Neutrophils Percent Auto 65.8 % (45.5-73.1); Platelet Count Result 225 k/mm3 (150-375); Red Blood Count 4.82 M/mm3 (4.6-6.20); Red Cell Distribution Width 13.8 % (11.5-14.5)
[2024-10-06 15:22] VITALS: BP 126/90; PULSE 84; RESP 18; TEMP 36.5; O2SAT 98
--- NOTE | 2024-10-06 15:29 | ED_ITS ---
HPI - Chest Pain General Chief Complaint: Chest Pain Stated Complaint: chest pain Time Seen by Provider: 10/06/24 15:30 Focused HPI: Patient is a 64 y/o male, with PMH DM, HTN, HLD, who presents to the ED with c/o CP. Patient reports he developed tightness across his anterior chest on Sunday. He notes the pain radiated into his bilateral teeth/jaw, down to his left wrist. He reported shortness of breath associated with the pain. States the pain lasted from approx 2pm-10pm on Sunday. Denied aggravation with exertion at that time. States he does have some persistent tightness in his L upper chest currently. Denies cough or cold sx's, fevers, pain or swelling in legs. 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 GENERAL: Well-appearing, obese with BMI of 33.8, and in no acute distress. HEAD: Normocephalic, atraumatic. CHEST: Clear to auscultation. ?No respiratory distress. HEART: Regular rate and rhythm.? MSK: No TTP along anterior chest wall. NEURO: ?Alert and oriented x3. Patient screened in triage and initial orders placed.? ?Additional care and disposition to be based upon?diagnostic testing and treatment. Source: patient Mode of arrival: ambulatory Limitations: no limitations Related Data Home Medications ?Medication ?Instructions ?Recorded ?Confirmed ?Last Taken ?Type blood-glucose meter (Accu-Chek #1 ea 05/01/19 08/11/24 Unknown History Rosemarie Plus Meter) Allergies Allergy/AdvReac Type Severity Reaction Status Date / Time No Known Allergies Allergy Verified 08/11/24 14:50 [facility] Past Medical History Medical History (Updated 08/11/24 @ 22:08 by Kasey Nova, BALANCE WHEEL FACER-C) Cough Allergic conjunctivitis Upper respiratory infection Epidermoid cyst of skin of back Cyst Localized swelling, mass and lump, unspecified Sinusitis Rotator cuff disorder Right Surgery 04/2022 Preoperative clearance Hole in intestines surgical repair Facet arthropathy, lumbar Hypertension Acute viral syndrome Sore throat Tinea cruris Combined hyperlipidemia Type 2 diabetes mellitus without complication, without long-term current use of insulin Surgical History Surgical History History of repair of rotator cuff Right shoulder 04/2022 Family History Family History Mother Family history of osteoarthritis Hypertension Father Family history of heart disease in male family member before age 55 Diabetes mellitus Social History Social History (Updated 08/11/24 @ 14:54 by Janis Mitchell) Social History: Caffeine-coffee Smoking status: Never smoker Tobacco type: cigars Additional smoking assessment comments: still smokes an occasional cigar Alcohol intake: never Alcohol use details: rarely Substance use: never Substance use type: does not use Do You Feel Safe in your Home?: Yes Lack of Transportation: No Lack of Food: Sometimes True Current Housing: I Have Housing Concerned About Future Housing: No Difficulty Paying Gas/Electric Bills: Decline to Answer Difficulty Paying for Meds: No Currently Unemployed: No Education: High School Diploma/GED Difficulty w/ Childcare or Family Care: No Living arrangements: with family Gender identity (if verbalized by the patient): Male Spiritual care concerns: No Course Vital Signs Vital signs: Vital Signs Temperature 97.7 F 10/06/24 15:22 Pulse Rate 84 10/06/24 15:22 Respiratory Rate 18 10/06/24 15:22 Blood Pressure 126/90 10/06/24 15:22 Pulse Oximetry 98 10/06/24 15:22 Oxygen Delivery Room Air 10/06/24 15:22 Temperature 97.7 F 10/06/24 15:22 Pulse Rate 84 10/06/24 15:22 Respiratory Rate 18 10/06/24 15:22 Blood Pressure 126/90 10/06/24 15:22 Pulse Oximetry 98 10/06/24 15:22 Oxygen Delivery Room Air 10/06/24 15:22 MDM - Chest Pain MDM Narrative Medical decision making narrative: MSE by LISANDRO in triage. Lab Data 10/06/24 15:02 10/06/24 15:02 Labs: Lab Results 10/06/24 Range/Units 15:02 WBC 8.0 (4.5-10.0) K/mm3 RBC 4.82 (4.6-6.20) M/mm3 Hgb 14.2 (14.0-18.0) g/dL Hct 42.4 (42.0-52.0) % MCV 88.0 (80-100) fl MCH 29.5 (26-34) pg MCHC 33.5 (32-36) g/dl RDW 13.8 (11.5-14.5) % Plt Count 225 (150-375) k/mm3 MPV 10.1 (7.4-10.4) fl Immature Gran % (Auto) 0.2 (0-0.5) % Neut % (Auto) 65.8 (45.5-73.1) % Lymph % (Auto) 22.1 (18.3-44.2) % [place] % (Auto) 7.6 (2.6-8.5) % Eos % (Auto) 3.4 (0-4.4) % Baso % (Auto) 0.9 (0.2-1.2) % Lymph # (Auto) 1.77 (0.9-3.2) K/mm3 [place] # (Auto) 0.6 (0.1-0.6) K/mm3 Eos # (Auto) 0.3 (0-0.3) K/mm3 Baso # (Auto) 0.1 (0.0-0.1) K/mm3 Abs Immat Gran (auto) 0.02 (0.00-0.031) K/mm3 Absolute Neuts (auto) 5.3 (1.3-6.7) K/mm3 Absolute Nucleated RBC 0.000 (0.0-0.012) K/mm3 Nucleated RBC % 0.0 (0.0-0.2) % PT 13.5 (11.1-14.7) Seconds INR 1.0 APTT 32.5 (22.3-36.8) Seconds Sodium 139 (137-145) mmol/L Potassium 4.2 (3.4-5.0) mmol/L Chloride 104 (98-107) mmol/L Carbon Dioxide 24 (22-30) mmol/L Anion Gap 11 (4-12) mmol/L BUN 34 H (9-20) mg/dL Creatinine 1.49 H (0.7-1.3) mg/dL Estim Creat Clear Calc 53 ml/min Estimated GFR 48 L (59 - ) Glucose 97 (65-110) mg/dL Calcium 9.4 (8.4-10.2) mg/dL Total Bilirubin 1.2 (0.2-1.3) mg/dL AST 20 (17-59) U/L ALT 19 (6-50) U/L Alkaline Phosphatase 65 (38-126) U/L Troponin I < 0.012 (0.000-0.034) ng/mL Total Protein 8.0 (6.3-8.2) g/dL Albumin 4.5 (3.5-5.1) g/dL Lipase 165 (23-300) U/L Discharge Plan Discharge Patient Language: Swedish Prescriptions: No Action (DME) blood-glucose meter [Accu-Chek Rosemarie Plus Meter] Misc See Rx Instructions .ROUTE .MEDSUPPLY Qty: 1 Rx Instructions: As directed triamcinolone acetonide 0.1 % cream 1 applic topical TID PRN (Reason: dry skin) Qty: 30 0RF albuterol sulfate 90 mcg/actuation HFA aerosol inhaler 2 puff INHALATION Q4-6H PRN (Reason: shortness of breath or wheezing) Qty: 18 1RF alprazolam [Xanax] 0.5 mg tablet 0.5 mg PO BID PRN (Reason: anxiety) Qty: 30 0RF Rx Instructions: Do not take while driving. May cause drowsiness. (DME) Accu-Chek Rosemarie Plus test strp Strip See Rx Instructions .ROUTE .MEDSUPPLY Qty: 100 2RF Rx Instructions: use to check blood sugar one time daily ketoconazole 2 % cream 1 applic TOPICAL DAILY PRN (Reason: tinea cruris) Qty: 30 0RF metformin 1,000 mg tablet 1,000 mg PO BID Qty: 180 1RF Rx Instructions: faxed request scopolamine base 1 mg over 3 days patch 3 day 1 patch transdermal Q3D PRN (Reason: motion sickness) Qty: 4 1RF meloxicam 15 mg tablet 15 mg PO DAILY Qty: 90 1RF lisinopril 40 mg tablet 40 mg PO DAILY Qty: 90 1RF allopurinol 300 mg tablet See Rx Instructions .ROUTE .COMPLEX Qty: 90 1RF Dose Instruction: Take 1 tablet by mouth once daily Rx Instructions: Take 1 tablet by mouth once daily atorvastatin 80 mg tablet See Rx Instructions .ROUTE .COMPLEX Qty: 90 1RF Dose Instruction: Take 1 tablet by mouth once daily Rx Instructions: Take 1 tablet by mouth once daily amlodipine 10 mg tablet 10 mg PO DAILY Qty: 90 1RF glimepiride 2 mg tablet 2 mg PO QAM Qty: 90 1RF Rx Instructions: administer with breakfast hydrochlorothiazide 25 mg tablet See Rx Instructions .ROUTE .COMPLEX Qty: 90 0RF Dose Instruction: Take 1 tablet by mouth once daily Rx Instructions: Take 1 tablet by mouth once daily Follow-up/Referrals: Angelo Estrella, [Primary Care Provider] -
[2024-10-06 15:30] LABS: Alanine Aminotransferase 19 U/L (6-50); Albumin Level 4.5 g/dL (3.5-5.1); Alkaline Phosphatase 65 U/L (38-126); Anion Gap 11 mmol/L (4-12); Aspartate Amino Transferase 20 U/L (17-59); Bilirubin,Total 1.2 mg/dL (0.2-1.3); Blood Urea Nitrogen 34 mg/dL (9-20); Calcium 9.4 mg/dL (8.4-10.2); Carbon Dioxide 24 mmol/L (22-30); Chloride 104 mmol/L (98-107); Estimated CRCL calculation 53 ml/min; Estimated Glomerular Filt Rate 48; Glucose 97 mg/dL (65-110); Lipase 165 U/L (23-300); Potassium 4.2 mmol/L (3.4-5.0); Prothrombin Time 13.5 Seconds (11.1-14.7); Sodium 139 mmol/L (137-145)
[2024-10-06 15:31] LABS: Partial Thromboplastin Time 32.5 Seconds (22.3-36.8)
[2024-10-06 15:41] LABS: Troponin I < 0.012 ng/mL (0.000-0.034)
--- OUTSIDE RECORDS SUMMARY | 2024-10-06 16:37 | XMS_ITS | Referral Summary ---
Author Organization [facility] [address] Address [address] [place] [id number] Care Team Providers Care Photo Machine Operator Name Role Phone Angelo Estrella DO Primary Care Provider [phone] Billy Sanchez Unavailable [phone] Allergies No known active allergies Medications allopurinoL (ZYLOPRIM) 300 mg tablet Take 1 tablet (300 mg total) by mouth daily 1 Active amLODIPine (NORVASC) 10 mg tablet Take 1 tablet (10 mg total) by mouth daily 1 Active atorvastatin (LIPITOR) 80 mg tablet Take 1 tablet (80 mg total) by mouth daily 1 Active glimepiride (AMARYL) 1 mg tablet Take 1 tablet (1 mg total) by mouth daily before breakfast 1 Active metFORMIN (GLUCOPHAGE) 1,000 mg tablet Take 1 tablet (1,000 mg total) by mouth 2 (two) times a day with meals 1 Active cloNIDine (CATAPRES) 0.1 mg tablet TAKE 1 TABLET BY MOUTH EVERY 1 HOUR NEEDED FOR HYPERTENSIVE EMERGENCY DO NOT EXCEED 10 DOSES IN 24 HOURS 2 Active hydroCHLOROthia zide (MICROZIDE) 12.5 mg capsule Take 1 capsule (12.5 mg total) by mouth 2 (two) times a day 2 Active lisinopriL (PRINIVIL,ZESTR IL) 30 mg tablet Take 1 tablet (30 mg total) by mouth daily 2 Active ketoconazole (NIZORAL) 2 % cream APPLY CREAM TOPICALLY ONCE DAILY TO THE AFFECTED AREA(S) NEEDED FOR TINEA CRURIS 2 Active meloxicam (MOBIC) 15 mg tablet Take 1 tablet (15 mg total) by mouth daily 2 Active ascorbic acid (VITAMIN C) 1,000 mg tablet Take 1 tablet (1,000 mg total) by mouth daily Active multivit-min/fo lic/vit K/lycop (ONE-A-DAY MEN'S 50 PLUS ORAL) Take by mouth Active Active Problems Problem Noted Date Diagnosed Date Arthritis of right acromioclavicular joint 04/29 Overview (04/29/2022): Added automatically from request for surgery [id number] Incomplete tear of right rotator cuff 04/29/2022 Overview (04/29/2022): Added automatically from request for surgery [id number] Impingement syndrome of right shoulder 2 Overview (04/29/2022): Added automatically from request for surgery [id number] Biceps tendinitis on right 04/29/2022 Overview (04/29/2022): Added automatically from request for surgery [id number] Social History Tobacco Use Types Packs/Day Years Used Date Smoking Tobacco: Never Smokeless Tobacco: Never Tobacco Cessation:Counseling Given: Not Answered AUDIT-C Answer Date Recorded Q1: How often do you have a drink containing alc ohol? Monthly or less 05/22/2022 Average Number of Drinks Not on file 022 Frequency of Binge Drinking Not on file 04/26 Sex and Gender Information Value Date Recorded Sex Assigned at Not on file Legal Sex Male 7:58 PM [employer] Gender Identity Not on file Sexual Orientation Not on file Last Filed Vital Signs Vital Sign Reading Time Taken Comments Blood Pressure 154/92 08/14/2022 8:10 AM [employer] Pulse 84 08/14/2022 8:10 AM [employer] Temperature 36.1 C (97 F) 05/22/2022 3:55 PM [employer] Respiratory Rate 20 05/22/2022 4:55 PM [employer] Oxygen Saturation 96% 05/22/2022 4:55 PM [employer] Inhaled Oxygen Concentration - - Weight 106.6 kg (235 lb) 08/14/2022 8:10 AM [employer] Height 174 cm (5' 8.5 ) 08/14/2022 8:10 AM [employer] Body Mass Index 35.21 08/14/2022 8:10 AM DRI[employer] PORTABLE Plan of Treatment Not on file Medical Devices Implanted Type Area Flight Service Specialist Device Identifier Shelf Expiration Date Model / Serial / Lot [employer]hew[employer]Rich[employer]/Or tho Implant Large Arthroscopic Bioinductive W/ Delivery Device 4566 - [id number] Implanted:Qty: 1 on 05/22/2022 by Robert Duke MD at [facility] Right: Shoulder [employer]/Richco/Or tho 08/30/2024 4566 / / [id number] [employer] Nephew Regenerate Tendon Stearns Suture 2504-1 - [id number] Implanted:Qty: 1 on 05/22/2022 by Robert Duke MD at [facility] Right: Shoulder [employer]hew 03/05/2025 2504-1 / / [id number] [employer]hew/Richco/Or tho Stearns Bone With Arthroscopic Delivery System Advanced 4403 - [id number] Implanted:Qty: 1 on 05/22/2022 by Robert Duke MD at [facility] Right: Shoulder [employer]/Richco/Or tho 12/03/2024 [id number] / / [id number] Insurance [facility] Care Teams Photo Machine Operator Relationship Specialty Start Date End Date Angelo Estrella DO PCP - General Internal Medicine 06/08/21 Billy Sanchez PA [address] [place] [address] DR CLARKE [address] [place] [id number] Physician Golf Ball Inspector Orthopedic Surgery 05/22/22
--- OUTSIDE RECORDS SUMMARY | 2024-10-06 16:37 | XMS_ITS | Clinical Summary ---
Author Organization [facility] [place] [address] Address [address] [place] [id number] Care Team Providers Care Inspector Final Assembly Electrical Name Role Phone Angelo Estrella DO Primary Care Provider [phone] Billy Sanchez Unavailable [phone] Allergies No known active allergies Medications allopurinoL [...] (04/29/2022): Added automatically from request for surgery [id number] Incomplete tear of right rotator cuff 04/29/2022 Overview (04/29/2022): Added automatically from request for surgery [id number] Impingement syndrome of right shoulder 2 Overview (04/29/2022): Added automatically from request for surgery [id number] Biceps tendinitis on right 04/29/2022 Overview (04/29/2022): Added automatically from request for surgery [id number] Surgical History Surgery Date Site/Laterality Comments COLON SURGERY removed part of small intestines due to polyp rupturing RADIOFREQUENCY ABLATION NERVES in the lower back Medical History Medical History Date Comments Hypertension Hypercholesteremia Diabetes mellitus (HCC) Family History Medical History Relation Name Comments Arthritis Other Diabetes Other Heart disease Other Hypertension Other Relation Name Status Comments Other Social History Tobacco Use Types Packs/Day Years [...] on file Legal Sex Male 7:58 PM [employer] Gender Identity Not on file Sexual Orientation Not on file Obstetrics History Last Filed Vital Signs Vital Sign Reading Time Taken Comments Blood Pressure 154/92 08/14/2022 8:10 AM [employer] Pulse 84 08/14/2022 8:10 AM [employer] Temperature 36.1 C (97 F) 05/22/2022 3:55 PM [employer] Respiratory Rate 20 05/22/2022 4:55 PM [employer] Oxygen Saturation 96% 05/22/2022 4:55 PM [employer] Inhaled Oxygen Concentration - - Weight 106.6 kg (235 lb) 08/14/2022 8:10 AM [employer] Height 174 cm (5' 8.5 ) 08/14/2022 8:10 AM [employer] Body Mass Index 35.21 08/14/2022 8:10 AM [employer] Plan of Treatment Health Maintenance Due Date Last Done Comments Colon Cancer Screening-Colonoscopy 1962 Depression Screening 1962 Hepatitis C Screening 1962 Prostate Cancer Screening-PSA 1962 DTaP/Tdap/Td Vaccine (1 - Tdap) 1973 Hepatitis B Screening 01/28/1980 Regular Well Visit/Exam 18-64 01/28/1980 Zoster Vaccine (1 of 2) 01/28/2012 Covid-19 Vaccine (4 - 2023-2 5 season) 2024 04/11/2021, 09/17/2020, 08/27/2020 Influenza Vaccine (#1) 2024 , 05/15/2020, 07/15/2017 Pneumococcal vaccine <65 Aged Out No longer eligible based on patient's age to complete this topic Medical Devices Implanted Type Area Animal Anatomist Device Identifier Shelf Expiration Date Model / Serial / Lot [employer] Nephew/Richco/Or tho Implant Large Arthroscopic Bioinductive W/ Delivery Device 4566 - [id number] Implanted:Qty: 1 on 05/22/2022 by Robert Duke MD at [facility] Right: Shoulder [employer]/Rich[employer]/Or tho 08/30/2024 4566 / / [id number] [employer]hew Regenerate Tendon [place] Suture 2504-1 - [id number] Implanted:Qty: 1 on 05/22/2022 by Robert Duke MD at [facility] Right: Shoulder [employer] 03/05/2025 2504-1 / / [id number] [employer]hew/Richco/Or tho [place] Bone With Arthroscopic Delivery System Advanced 4403 - [id number] Implanted:Qty: 1 on 05/22/2022 by Robert Duke MD at [facility] Right: Shoulder [employer]/Richco/Or tho 12/03/2024 [id number] / / [id number] Insurance [facility] Address: [place] [id number] [facility] Address: [address] [address] Care Teams Inspector Final Assembly Electrical Relationship Specialty Start Date End Date Angelo Estrella DO PCP - General Internal Medicine 06/08/21 Billy Sanchez PA [address] [place] [address] [place] [address] Physician Advertising Representative Orthopedic Surgery 05/22/22
[2024-10-06 17:26] VITALS: O2SAT 96
[2024-10-06 17:27] VITALS: BP 150/94; PULSE 69; RESP 17; O2SAT 96
[2024-10-06 17:36] LABS: D Dimer 0.35 ug/mL (<0.48)
--- NOTE | 2024-10-06 17:39 | ED_ITS ---
HPI - Chest Pain General Chief Complaint: Chest Pain Stated Complaint: chest pain Time Seen by Provider: 10/06/24 15:30 Source: patient Mode of arrival: ambulatory Limitations: no limitations History of Present Illness HPI narrative: This is a 64-year-old male with PMH of DM type 2, HLD, HTN who presents to the ED for chief complaint of chest pain that radiates into teeth and left arm x2 days. Describes the pain is more of a tightness and rates it at a 1 or 2/10. States that he did feel very stressed and took as Xanax which should help with the pain. States that the pain actually gets better when he gets up and moves around and is worse when he lays down. Denies associated nausea, vomiting, diaphoresis, numbness, weakness. Denies coronary artery history. States that he does not smoke cigarettes. Related Data Home Medications ?Medication ?Instructions ?Recorded ?Confirmed ?Last Taken ?Type blood-glucose meter (Accu-Chek #1 ea 05/01/19 08/11/24 Unknown History Rosemarie Plus Meter) Allergies Allergy/AdvReac Type Severity Reaction Status Date / Time No Known Allergies Allergy Verified 10/06/24 17:28 Review of Systems 2 Review of Systems: All systems as dictated in HPI [facility] Past Medical History Medical History (Updated 10/06/24 @ 19:11 by Juan C Leyva PA-C) Cough Allergic conjunctivitis Upper respiratory infection Epidermoid cyst of skin of back Cyst Localized swelling, mass and lump, unspecified Sinusitis Rotator cuff disorder Right Surgery 04/2022 Preoperative clearance Hole in intestines surgical repair Facet arthropathy, lumbar Hypertension Acute viral syndrome Sore throat Tinea cruris Combined hyperlipidemia Type 2 diabetes mellitus without complication, without long-term current use of insulin Surgical History Surgical History History of repair of rotator cuff Right shoulder 04/2022 Family History Family History Mother Family history of osteoarthritis Hypertension Father Family history of heart disease in male family member before age 55 Diabetes mellitus Social History Social History (Updated 08/11/24 @ 14:54 by Janis Mitchell) Social History: Caffeine-coffee Smoking status: Never smoker Tobacco type: cigars Additional smoking assessment comments: still smokes an occasional cigar Alcohol intake: never Alcohol use details: rarely Substance use: never Substance use type: does not use Do You Feel Safe in your Home?: Yes Lack of Transportation: No Lack of Food: Sometimes True Current Housing: I Have Housing Concerned About Future Housing: No Difficulty Paying Gas/Electric Bills: Decline to Answer Difficulty Paying for Meds: No Currently Unemployed: No Education: High School Diploma/GED Difficulty w/ Childcare or Family Care: No Living arrangements: with family Gender identity (if verbalized by the patient): Male Spiritual care concerns: No Exam 2 Narrative: GENERAL: Well-appearing, well-nourished, and in no acute distress. HEAD: Normocephalic, atraumatic. EYES: PERRLA and EOMI. ENT: Nares clear, no rhinorrhea or epistaxis. Mucous membranes moist. Oropharynx without tonsillar hypertrophy exudate or other lesions. NECK: Supple. No adenopathy or masses. CHEST: No respiratory distress. Clear to auscultation. No wheezes rales or rhonchi HEART: Regular rate and rhythm. No murmur heard. Normal peripheral pulses. ABDOMEN: Soft, nontender, nondistended, normal active bowel sounds. MSK: Normal range of motion. No edema. SKIN: Warm, dry, no rash. NEURO: Alert and oriented x4. No focal deficits. PSYCH: Normal mood and affect. Course Vital Signs Vital signs: Vital Signs Temperature 97.7 F 10/06/24 15:22 Pulse Rate 84 10/06/24 15:22 Respiratory Rate 18 10/06/24 15:22 Blood Pressure 126/90 10/06/24 15:22 Pulse Oximetry 98 10/06/24 15:22 Oxygen Delivery Room Air 10/06/24 15:22 Temperature 97.7 F 10/06/24 15:22 Pulse Rate 72 10/06/24 19:22 Respiratory Rate 18 10/06/24 19:22 Blood Pressure 147/81 H 10/06/24 19:22 Pulse Oximetry 96 10/06/24 19:22 Oxygen Delivery Room Air 10/06/24 17:26 MDM - Chest Pain MDM Narrative Medical decision making narrative: This is a 64-year-old male who presents to the ED for chief complaint of left- sided chest pain over the past couple of days that he describes as tightness. Vitals are normal. Exam is unremarkable. EKG shows sinus rhythm with isolated T-wave inversion in lead 3. No STEMI. 0 hour and 3 hour troponins are negative. D-dimer negative as well. Chest x-ray negative. Patient states that he is symptom free on re-evaluation. His heart score today is elevated at of 4 which puts him in the high-risk category due to his past medical history. I discussed with the patient that he is high risk and official recommendation would be to stay in the hospital for further evaluation. He feels that his symptoms have improved greatly and does not want to stay in the hospital. He understands his risk with being discharged. He feels comfortable with following up closely with his family physician this week. I do feel comfortable with this as his pain overall does not have a overly suspicious story and feels unlikely to be cardiac derived chest pain. Patient will be discharged in stable condition. Supportive measures discussed and return precautions given. Patient is understanding and agreeable with plan for discharge with PCP follow-up. Lab Data 10/06/24 15:02 10/06/24 15:02 Labs: Lab Results 10/06/24 10/06/24 Range/Units 15:02 18:05 WBC 8.0 (4.5-10.0) K/mm3 RBC 4.82 (4.6-6.20) M/mm3 Hgb 14.2 (14.0-18.0) g/dL Hct 42.4 (42.0-52.0) % MCV 88.0 (80-100) fl MCH 29.5 (26-34) pg MCHC 33.5 (32-36) g/dl RDW 13.8 (11.5-14.5) % Plt Count 225 (150-375) k/mm3 MPV 10.1 (7.4-10.4) fl Immature Gran % (Auto) 0.2 (0-0.5) % Neut % (Auto) 65.8 (45.5-73.1) % Lymph % (Auto) 22.1 (18.3-44.2) % Mason % (Auto) 7.6 (2.6-8.5) % Eos % (Auto) 3.4 (0-4.4) % Baso % (Auto) 0.9 (0.2-1.2) % Lymph # (Auto) 1.77 (0.9-3.2) K/mm3 Mason # (Auto) 0.6 (0.1-0.6) K/mm3 Eos # (Auto) 0.3 (0-0.3) K/mm3 Baso # (Auto) 0.1 (0.0-0.1) K/mm3 Abs Immat Gran (auto) 0.02 (0.00-0.031) K/mm3 Absolute Neuts (auto) 5.3 (1.3-6.7) K/mm3 Absolute Nucleated RBC 0.000 (0.0-0.012) K/mm3 Nucleated RBC % 0.0 (0.0-0.2) % PT 13.5 (11.1-14.7) Seconds INR 1.0 APTT 32.5 (22.3-36.8) Seconds D-Dimer 0.35 (<0.48) ug/mL Sodium 139 (137-145) mmol/L Potassium 4.2 (3.4-5.0) mmol/L Chloride 104 (98-107) mmol/L Carbon Dioxide 24 (22-30) mmol/L Anion Gap 11 (4-12) mmol/L BUN 34 H (9-20) mg/dL Creatinine 1.49 H (0.7-1.3) mg/dL Estim Creat Clear Calc 53 ml/min Estimated GFR 48 L (59 - ) Glucose 97 (65-110) mg/dL Calcium 9.4 (8.4-10.2) mg/dL Total Bilirubin 1.2 (0.2-1.3) mg/dL AST 20 (17-59) U/L ALT 19 (6-50) U/L Alkaline Phosphatase 65 (38-126) U/L Troponin I < 0.012 < 0.012 (0.000-0.034) ng/mL Total Protein 8.0 (6.3-8.2) g/dL Albumin 4.5 (3.5-5.1) g/dL Lipase 165 (23-300) U/L ECG Data EKG #1: ECG completion date: 10/06/24 ECG completion time: 14:56 Prior ECG tracings: available for review Interpretation: Sinus rhythm Rate 76 Normal QRS T-wave inversion noted in lead 3, no other significant ST or T-wave deviations No STEMI Discharge Plan Discharge Clinical Impression: Chest pain Patient Disposition: Home Condition: Stable Instructions: Antibiotic Form, Chest Pain (ED) Additional Instructions: Your exam and imaging today reassuring. You are at an increased level of major coronary artery event, so you should have strict return precautions for any new or worsening chest pain, shortness of breath or vomiting. Follow-up very closely with your physician on this issue. If you have any new or worsening symptoms please return to the ER for further evaluation. Patient Language: Faroese Prescriptions: No Action (DME) blood-glucose meter [Accu-Chek Rosemarie Plus Meter] [facility] See Rx Instructions .ROUTE .MEDSUPPLY Qty: 1 Rx Instructions: As directed triamcinolone acetonide 0.1 % cream 1 applic topical TID PRN (Reason: dry skin) Qty: 30 0RF albuterol sulfate 90 mcg/actuation HFA aerosol inhaler 2 puff INHALATION Q4-6H PRN (Reason: shortness of breath or wheezing) Qty: 18 1RF alprazolam [Xanax] 0.5 mg tablet 0.5 mg PO BID PRN (Reason: anxiety) Qty: 30 0RF Rx Instructions: Do not take while driving. May cause drowsiness. (DME) Accu-Chek Rosemarie Plus test strp Strip See Rx Instructions .ROUTE .MEDSUPPLY Qty: 100 2RF Rx Instructions: use to check blood sugar one time daily ketoconazole 2 % cream 1 applic TOPICAL DAILY PRN (Reason: tinea cruris) Qty: 30 0RF metformin 1,000 mg tablet 1,000 mg PO BID Qty: 180 1RF Rx Instructions: faxed request meloxicam 15 mg tablet 15 mg PO DAILY Qty: 90 1RF lisinopril 40 mg tablet 40 mg PO DAILY Qty: 90 1RF allopurinol 300 mg tablet See Rx Instructions .ROUTE .COMPLEX Qty: 90 1RF Dose Instruction: Take 1 tablet by mouth once daily Rx Instructions: Take 1 tablet by mouth once daily atorvastatin 80 mg tablet See Rx Instructions .ROUTE .COMPLEX Qty: 90 1RF Dose Instruction: Take 1 tablet by mouth once daily Rx Instructions: Take 1 tablet by mouth once daily amlodipine 10 mg tablet 10 mg PO DAILY Qty: 90 1RF glimepiride 2 mg tablet 2 mg PO QAM Qty: 90 1RF Rx Instructions: administer with breakfast hydrochlorothiazide 25 mg tablet See Rx Instructions .ROUTE .COMPLEX Qty: 90 0RF Dose Instruction: Take 1 tablet by mouth once daily Rx Instructions: Take 1 tablet by mouth once daily Follow-up/Referrals: Angelo Estrella DO [Primary Care Provider] - Time of Disposition: 19:11 Quality HEART score for chest pain patients History: slightly suspicious ECG: non specific repolarization disturbance/LBTB/PM Age: > 45 and < 65 years Risk factors: > or = to 3 risk factors of atherosclerotic disease Troponin: < or = to 1x normal limit Heart score: 4
--- OUTSIDE RECORDS SUMMARY | 2024-10-06 18:01 | XMS_ITS | Referral Summary ---
Author Organization [facility] [place] [address] [place] [id number] Care Team Providers Care Geography Teacher Name Role Phone Angelo Estrella DO Primary Care Provider [phone] Billy Sanchez Unavailable [phone] Allergies No known active allergies Medications allopurinoL [...] (04/29/2022): Added automatically from request for surgery [id number] Incomplete tear of right rotator cuff 04/29/2022 Overview (04/29/2022): Added automatically from request for surgery [id number] Impingement syndrome of right shoulder 2 Overview (04/29/2022): Added automatically from request for surgery [id number] Biceps tendinitis on right 04/29/2022 Overview (04/29/2022): Added automatically from request for surgery [id number] Social History Tobacco Use Types Packs/Day Years [...] on file Legal Sex Male 7:58 PM CLASSIFIED ADVERTISING CLERK Gender Identity Not on file Sexual Orientation Not on file Last Filed Vital Signs Vital Sign Reading Time Taken Comments Blood Pressure 154/92 08/14/2022 8:10 AM CLASSIFIED ADVERTISING CLERK Pulse 84 08/14/2022 8:10 AM CLASSIFIED ADVERTISING CLERK Temperature 36.1 C (97 F) 05/22/2022 3:55 PM CLASSIFIED ADVERTISING CLERK Respiratory Rate 20 05/22/2022 4:55 PM CLASSIFIED ADVERTISING CLERK Oxygen Saturation 96% 05/22/2022 4:55 PM CLASSIFIED ADVERTISING CLERK Inhaled Oxygen Concentration - - Weight 106.6 kg (235 lb) 08/14/2022 8:10 AM CLASSIFIED ADVERTISING CLERK Height 174 cm (5' 8.5 ) 08/14/2022 8:10 AM CLASSIFIED ADVERTISING CLERK Body Mass Index 35.21 08/14/2022 8:10 AM CLASSIFIED ADVERTISING CLERK Plan of Treatment Not on file Medical Devices Implanted Type Area Director Hedis Device Identifier Shelf Expiration Date Model / Serial / Lot Pennington [employer] Nephew/Richco/Or tho Implant Large Arthroscopic Bioinductive W/ Delivery Device 4566 - [id number] Implanted:Qty: 1 on 05/22/2022 by Robert Duke MD at [facility] Right: Shoulder [employer] Nephew/Richco/Or tho 08/30/2024 4566 / / [id number] Pennington [employer] Nephew Regenerate Tendon [place]bee Suture 2504-1 - [id number] Implanted:Qty: 1 on 05/22/2022 by Robert Duke MD at [facility] Right: Shoulder [employer] Nephew 03/05/2025 2504-1 / / [id number] Penningotn & Nephew/Richco/Or tho Bybee Bone With Arthroscopic Delivery System Advanced 4403 - [id number] Implanted:Qty: 1 on 05/22/2022 by Robert Duke MD at [facility] Right: Shoulder Pennington [employer] Nephew/Richco/Or tho 12/03/2024 [id number] / / [id number] Insurance [facility] Care Teams Geography Teacher Relationship Specialty Start Date End Date Angelo Estrella DO PCP - General Internal Medicine 06/08/21 Billy Sanchez PA [address] [place] [address] [address] CLARKE [address] [place] [id number] Physician Ground Crewman Aircraft Support Orthopedic Surgery 05/22/22
--- OUTSIDE RECORDS SUMMARY | 2024-10-06 18:02 | XMS_ITS | Clinical Summary ---
Author Organization [facility] [address] Address [address] [place] [phone] Care Team Providers Care Blood Bank Supervisor Name Role Phone Angelo Estrella DO Primary Care Provider [phone] Billy Sanchez Unavailable [phone] Allergies No known active allergies Medications allopurinoL [...] (04/29/2022): Added automatically from request for surgery [id number] Incomplete tear of right rotator cuff 04/29/2022 Overview (04/29/2022): Added automatically from request for surgery [id number] Impingement syndrome of right shoulder 2 Overview (04/29/2022): Added automatically from request for surgery [id number] Biceps tendinitis on right 04/29/2022 Overview (04/29/2022): Added automatically from request for surgery [id number] Surgical History Surgery Date Site/Laterality Comments COLON [...] on file Legal Sex Male 7:58 PM BIAS CUTTER Gender Identity Not on file Sexual Orientation Not on file Obstetrics History Last Filed Vital Signs Vital Sign Reading Time Taken Comments Blood Pressure 154/92 08/14/2022 8:10 AM BIAS CUTTER Pulse 84 08/14/2022 8:10 AM BIAS CUTTER Temperature 36.1 C (97 F) 05/22/2022 3:55 PM BIAS CUTTER Respiratory Rate 20 05/22/2022 4:55 PM BIAS CUTTER Oxygen Saturation 96% 05/22/2022 4:55 PM BIAS CUTTER Inhaled Oxygen Concentration - - Weight 106.6 kg (235 lb) 08/14/2022 8:10 AM BIAS CUTTER Height 174 cm (5' 8.5 ) 08/14/2022 8:10 AM BIAS CUTTER Body Mass Index 35.21 08/14/2022 8:10 AM BIAS CUTTER Plan of Treatment Health Maintenance Due Date [...] this topic Medical Devices Implanted Type Area Manager Human Capital Device Identifier Shelf Expiration Date Model / Serial / Lot Pennington [employer] Nephew/Richco/Or tho Implant Large Arthroscopic Bioinductive W/ Delivery Device 4566 - [id number] Implanted:Qty: 1 on 05/22/2022 by Robert Duke MD at [facility] Right: Shoulder Pennington [employer] Nephew/Richco/Or tho 08/30/2024 4566 / / [id number] Pennington [employer] Nephew Regenerate Tendon Ford Suture 2504-1 - [id number] Implanted:Qty: 1 on 05/22/2022 by Robert Duke MD at [facility] Right: Shoulder Pennington [employer] Nephew 03/05/2025 2504-1 / / [id number] Pennington [employer] Nephew/Richco/Or tho Ford Bone With Arthroscopic Delivery System Advanced 4403 - [id number] Implanted:Qty: 1 on 05/22/2022 by Robert Duke MD at [facility] Right: Shoulder Pennington [employer] Nephew/Richco/Or tho 12/03/2024 4403 / / [id number] Insurance [facility] Address: [place] [id number] [facility]/PPO Address: [address] [id number] Care Teams Blood Bank Supervisor Relationship Specialty Start Date End Date Angelo Estrella DO PCP - General Internal Medicine 06/08/21 Billy Sanchez PA [address] [place] [address] [place] [address] Physician Blow Down Helper Orthopedic Surgery 05/22/22
[2024-10-06 18:31] LABS: Troponin I < 0.012 ng/mL (0.000-0.034)
[2024-10-06 19:22] VITALS: BP 147/81; PULSE 72; RESP 18; O2SAT 96
== END 2024-10-06 19:23 | disposition home or self-care (01) ==
PROVIDERS: Emergency Medicine; Physician Assistant; Emergency Provider Physician Assistant; PCP Internal Medicine
DX: R07.89 Other chest pain (principal); I10 Essential (primary) hypertension; E11.9 Type 2 diabetes mellitus without complications; E78.2 Mixed hyperlipidemia; F17.290 Nicotine dependence, other tobacco product, uncomplicated; Z79.84 Long term (current) use of oral hypoglycemic drugs; Z79.899 Other long term (current) drug therapy; R94.31 Abnormal electrocardiogram [ECG] [EKG]
CPT/HCPCS: 36415; 71046; 80053; 83690; 84484; 85025; 85380; 85610; 85730; 93005; 99284

== ENCOUNTER 2024-10-15 07:32 | Outpatient (CLI) | payer OTHER, SELFPAY ==
--- NOTE | ~2024-10-15 | NM_ITS ---
EXAMINATION: NM rojelio stress w perfusion DATE: 10/15/2024 10:43 INDICATION: Chest pain and hypertension TECHNIQUE: Rest images were obtained following intravenous administration of 10.6 mCi Tc99m tetrofosm in (Myoview). The patient was infused intravenously with Lexiscan (Regadenoson). Then, 33.7 mCi Tc99m tetrofosmin (Myoview) was administered intravenously, and stress images were obtained. Data was lety nstructed into short axis and horizontal and vertical long axis SPECT images. Gated SPECT images were also obtained. COMPARISON: None. FINDINGS: There is no definite reversible or fixed perfusion abnormality to suggest ischemia or infar ction. There is normal left ventricular chamber size, wall motion and ejection fraction. Left ventr icular ejection fraction measures >70%. IMPRESSION: 1. Normal myocardial perfusion at rest and during stress. 2. Left ventricular ejection fraction measuring >70%. Reviewed, dictated and finalized at location A.
--- OUTSIDE RECORDS SUMMARY | 2024-10-15 07:37 | XMS_ITS | Clinical Summary ---
Author Organization [facility] [place] [address] Address [address] [place] [id number] Care Team Providers Care Supervisor Park Workers Name Role Phone Angelo Estrella DO Primary Care Provider [phone]- [phone] Billy Sanchez Unavailable [phone] Allergies No known active allergies Medications allopurinoL [...] (04/29/2022): Added automatically from request for surgery [id number] Incomplete tear of right rotator cuff 04/29/2022 Overview (04/29/2022): Added automatically from request for surgery [id number] Impingement syndrome of right shoulder 2 Overview (04/29/2022): Added automatically from request for surgery [id number] Biceps tendinitis on right 04/29/2022 Overview (04/29/2022): Added automatically from request for surgery [id number] Surgical History Surgery Date Site/Laterality Comments COLON [...] on file Legal Sex Male 7:58 PM 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5 ) 08/14/2022 8:10 AM 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 SUPERVISOR Body Mass Index 35.21 08/14/2022 8:10 AM 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 SUPERVISOR Plan of Treatment Health Maintenance Due Date [...] this topic Medical Devices Implanted Type Area Appointment Clerk Device Identifier Shelf Expiration Date Model / Serial / Lot Pennington [employer] Nephew/Richco/Or tho Implant Large Arthroscopic Bioinductive W/ Delivery Device 4566 - [id number] Implanted:Qty: 1 on 05/22/2022 by Robert Duke MD at [facility] Right: Shoulder Pennington & Nephew/Richco/Or tho 08/30/2024 4566 / / [id number] Pennington [employer] Nephew Regenerate Tendon Alsip Suture 2504-1 - [id number] Implanted:Qty: 1 on 05/22/2022 by Robert Duke MD at [facility] Right: Shoulder Pennington [employer] Nephew 03/05/2025 2504-1 / / [id number] Pennington & Nephew/Richco/Or tho Alsip Bone With Arthroscopic Delivery System Advanced 4403 - [id number] Implanted:Qty: 1 on 05/22/2022 by Robert Duke MD at [facility] Right: Shoulder Pennington [employer] Nephew/Richco/Or tho 12/03/2024 4403 / / [id number] Insurance Member Subscriber Plan / Payer (Ef fective 2020-Present) Name:Harley Hernandez Relation to Subscriber:Self Name:Harley Hernandez Payer ID:[id number] (NAIC) Type:[facility] HMO/PPO Address: [place] [id number] Care Teams Supervisor Park Workers Relationship Specialty Start Date End Date Angelo Estrella DO PCP - General Internal Medicine 06/08/21 Billy Sanchez PA [address] [place] [address] [place] [address] Physician Assembler Wire Mesh Gate Orthopedic Surgery 05/22/22
--- OUTSIDE RECORDS SUMMARY | 2024-10-15 07:37 | XMS_ITS | Referral Summary ---
Author Organization [facility] [address] Address [address] [place] [phone] Care Team Providers Care Applied Psychology Professor Name Role Phone Angelo Estrella DO Primary Care Provider [phone]- [phone] Billy Sanchez Unavailable [phone] Allergies No known active allergies Medications allopurinoL [...] (04/29/2022): Added automatically from request for surgery [id number] Incomplete tear of right rotator cuff 04/29/2022 Overview (04/29/2022): Added automatically from request for surgery [id number] Impingement syndrome of right shoulder 2 Overview (04/29/2022): Added automatically from request for surgery [id number] Biceps tendinitis on right 04/29/2022 Overview (04/29/2022): Added automatically from request for surgery [id number] Social History Tobacco Use Types Packs/Day Years [...] on file Legal Sex Male 7:58 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 Gender Identity Not on file Sexual Orientation Not on file Last Filed Vital Signs Vital Sign Reading Time Taken Comments Blood Pressure 154/92 08/14/2022 8:10 AM ENGINEERING EQUIPMENT OPERATOR Pulse 84 08/14/2022 8:10 AM ENGINEERING EQUIPMENT OPERATOR Temperature 36.1 C (97 F) 05/22/2022 3:55 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 OPERATOR Respiratory Rate 20 05/22/2022 4:55 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 OPERATOR Oxygen Saturation 96% 05/22/2022 4:55 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 OPERATOR Inhaled Oxygen Concentration - - Weight 106.6 kg (235 lb) 08/14/2022 8:10 AM ENGINEERING EQUIPMENT OPERATOR Height 174 cm (5' 8.5 ) 08/14/2022 8:10 AM ENGINEERING EQUIPMENT OPERATOR Body Mass Index 35.21 08/14/2022 8:10 AM ENGINEERING EQUIPMENT OPERATOR Plan of Treatment Not on file Medical Devices Implanted Type Area Procedure Manager Device Identifier Shelf Expiration Date Model / Serial / Lot Pennington [employer] Nephew/Richco/Or tho Implant Large Arthroscopic Bioinductive W/ Delivery Device 4566 - [id number] Implanted:Qty: 1 on 05/22/2022 by Robert Duke MD at [facility] Right: Shoulder Pennington & Nephew/Richco/Or tho 08/30/2024 4566 / / [id number] Pennington & Nephew Regenerate Tendon [place]oxey Suture 2504-1 - [id number] Implanted:Qty: 1 on 05/22/2022 by Robert Duke MD at [facility] Right: Shoulder Pennington & Nephew 03/05/2025 2504-1 / / [id number] Pennington & Nephew/Richco/Or tho Toxey Bone With Arthroscopic Delivery System Advanced 4403 - [id number] Implanted:Qty: 1 on 05/22/2022 by Robert Duke MD at [facility] Right: Shoulder Pennington & Nephew/Richco/Or tho 12/03/2024 [id number] / / [id number] Insurance [facility] Care Teams Applied Psychology Professor Relationship Specialty Start Date End Date Angelo Estrella DO PCP - General Internal Medicine 06/08/21 Billy Sanchez PA [address] [place] [address] [address] CLARKE [address] [place] [address] Physician Record Maker Orthopedic Surgery 05/22/22
--- NOTE | 2024-10-15 07:44 | EST_ITS ---
Patient Info Name: Harley Hernandez Age: 64 years : 1960 Gender: Male Ht: 68 in Wt: 225 lbs BSA: 2.25 m2 HR: 60 bpm BP: 129 / 71 mmHg Exam Date: 10/15/2024 8:52 AM Exam Location: Echo Lab Patient Status: Outpatient Admit Date: 10/15/2024 Staff Ordering Physician: Kasey Nova Attending Provider: Kasey Nova Exercise Technologist: Lynn Valdovinos RDCS Exercise Physician: Oumar Chirinos DO Exam Type: CA stress rojelio w NM Study Info A regadenoson stress test was performed. Summary 1. 1. Negative lexiscan stress test for ischemic ST changes by ECG criteria. 2. 2. Stable hemodynamics throughout the test. 3. 3. Nuclear scan to follow and will be reported separately. Please correlate with it. 4. 4. Patient informed of the above results. Protocol: Lexiscan Stress ECG Details Stage: REST Duration (min): 1 min : 21 sec HR (bpm): 60 SBP (mmHg): 129 DBP (mmHg): 71 Stage: REST Duration (min): 3 min : 41 sec HR (bpm): 63 SBP (mmHg): 129 DBP (mmHg): 71 Stage: STAGE 1 Duration (min): 0 min : 59 sec HR (bpm): 78 SBP (mmHg): 131 DBP (mmHg): 79 Stage: RECOVERY Duration (min): 1 min : 0 sec HR (bpm): 86 SBP (mmHg): 131 DBP (mmHg): 79 Stage: RECOVERY Duration (min): 2 min : 0 sec HR (bpm): 83 SBP (mmHg): 131 DBP (mmHg): 79 Stage: RECOVERY Duration (min): 3 min : 0 sec HR (bpm): 81 SBP (mmHg): 134 DBP (mmHg): 81 Stage: RECOVERY Duration (min): 3 min : 7 sec HR (bpm): 78 SBP (mmHg): 134 DBP (mmHg): 81 Rest HR: 63 bpm Peak HR: 87 bpm Rest Sys BP: 129 mmHg Peak Sys BP: 134 mmHg Max Pred HR: 158 bpm % Max Pred HR: 55 % Target HR: 134 bpm Max RPP: 11,658 bpm*mmHg Termination Reason: Completed protocol Cardiac Symptoms: Shortness of breath, Dizziness, Baseline chest tightness Total Time: 1 min : 0 sec Rest Yan BP: 71 mmHg Peak Yan BP: 81 mmHg Total Dose: 0.4 mg Resting ECG Sinus rhythm. Stress ECG No ST changes. Arrhythmias None. Report Signatures
== END 2024-10-15 07:33 | disposition home or self-care (01) ==
PROVIDERS: PCP Internal Medicine; Visit Provider Clinical Nurse Specialist
DX: R07.9 Chest pain, unspecified (principal); I10 Essential (primary) hypertension; E11.9 Type 2 diabetes mellitus without complications; E78.2 Mixed hyperlipidemia
CPT/HCPCS: 78452; 93017; A9502; J2785

== ENCOUNTER 2024-11-01 07:33 | Outpatient (CLI) | payer OTHER, SELFPAY ==
--- NOTE | ~2024-11-01 | MR_ITS ---
MRI of the left shoulder Technique: Axial proton-density fat-sat images, coronal proton density fat-sat and T2 fat-sat images, and sagittal T1-weighted and T2 fat-sat images were acquired. Clinical History: Pain Findings: There is moderate degenerative AC joint degenerative change, with bony productive change of the distal clavicle and small subacromial spur. Coracoclavicular, coracoacromial, and coracohumeral ligaments appear intact. There is mild supraspinatus and infraspinatus tendinosis, without partial or full-thickness tear. Sub scapularis tendon is intact with mild to moderate tendinosis. Tendon of the long head of the biceps i s intact. There is superior labral tear extending to the anterosuperior portion. Inferior glenohumeral ligament is intact. No degenerative change or effusion of the glenohumeral join t. No fluid distention of the subacromial/subdeltoid bursa. No muscle atrophy or edema. Impression: Superior labral tear extending to the anterosuperior portion. Rotator cuff tendinosis. Reviewed, dictated and finalized at location . Impression: Superior labral tear extending to the anterosuperior portion. Rotator cuff tendinosis.
== END 2024-11-01 07:34 | disposition home or self-care (01) ==
LOC: MICIMG 07:33
PROVIDERS: PCP Internal Medicine; Visit Provider Clinical Nurse Specialist
DX: M19.012 Primary osteoarthritis, left shoulder (principal); S43.432A Superior glenoid labrum lesion of left shoulder, initial encounter; M75.32 Calcific tendinitis of left shoulder; X58.XXXA Exposure to other specified factors, initial encounter
CPT/HCPCS: 73221

== ENCOUNTER 2024-11-08 07:27 | Outpatient (CLI) | payer OTHER, SELFPAY ==
--- NOTE | ~2024-11-08 | XR_ITS ---
XR shoulder LT min 2V Ordering provider: Jacob Merino MD History: . M19.012 - Primary osteoarthritis, left shoulder . Comparison: None. FINDINGS: BONES: No acute fracture or dislocation. JOINT SPACES: The acromioclavicular joint shows osteoarthritic changes. The glenohumeral joint is nor mal. SOFT TISSUES: Aren't opacity is seen adjacent to the proximal humerus which may be soft tissue ossifi cation or foreign body. Clinical correlation advised. IMPRESSION: No acute osseous abnormality left shoulder. Osteoarthritic changes of the left acromioclavicular joint. Reviewed, dictated and finalized at location A.
== END 2024-11-08 07:28 | disposition home or self-care (01) ==
LOC: MICIMG 07:30
PROVIDERS: PCP Internal Medicine; Visit Provider Orthopaedic Surgery
DX: M19.012 Primary osteoarthritis, left shoulder (principal); S43.439A Superior glenoid labrum lesion of unspecified shoulder, initial encounter; X58.XXXA Exposure to other specified factors, initial encounter
CPT/HCPCS: 73030

== ENCOUNTER 2025-03-03 15:30 | Outpatient (RCR) | payer OTHER, SELFPAY ==
--- NOTE | 2025-02-10 16:49 | OPREHPOC ---
Outpatient Therapy Plan of Care This is a Multidisciplinary Plan of Care that may contain components documented by all disciplines (PT, OT, and ST.) PT Problem 1 PT Problem #1 Knowledge Deficit PT Goal 1 Goal / Goal Update [place] with HEP Target Visit 4 PT Goal 2 Goal / Goal Update Report no shoulder pain greater than 1/10 for 2 consecutive weeks Target Visit 6 PT Problem 2 PT Problem #2 Impaired Range of Motion PT Goal 1 Goal / Goal Update 1. Achieve 175 degrees of pain free shoulder flexion ROM [place] 2. demonstrate ability to reach behind head pain free with left arm Target Visit 6 PT Problem 3 PT Problem #3 Impaired Strength PT Goal 1 Goal / Goal Update 1. Demonstrate 5/5 L shoulder strength for stabilization with ADL performance Target Visit 6
--- NOTE | 2025-02-10 16:49 | PTOPEVAL1 ---
Assessment and note entered by Erick Narayanan, PT Evaluation Information Assessment Status Evaluation Diagnosis S43.432A- Labral lesion of left shoulder ICD-10 Condition Codes (PT) Pain in left shoulder M25.512 Onset December 2024 Subjective Information Reports that he had to go through a cardiac stress test as he was having left shoulder pain and chest tightness this summer. He had an MRI on the shoulder indicating a torn labrum when all was said and done. He is having the most pain and tightness when he is reaching over head and away from body. Denies issues with his right shoulder. Feels that the more he stretches it out the better he feels. Assessment PT Clinical Summary Patient demonstrating end range shoulder flexion and abduction motion pain at this time. These are indicative of labral pathology. Minor weakness noted with postural performance deficits of [place] periscapular. 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 Plan of Care Interventions Gait Training,Manual Therapy,Neuro Re-education, Therapeutic Activities,Therapeutic Exercise PT Services Indicated Yes Treatment Frequency and 1-2x/week for 6 visitis Duration These treatments will address the objective and functional deficits as defined above. The patient will be advanced safely and appropriately in order for the patient to progress towards his/her prior level of function. Additional exercises will be introduced and as well as a comprehensive home exercise program upon discharge, if needed, ?to ensure carryover of functional gains achieved in the clinic. This treatment plan has been reviewed and agreement upon by the patient.
--- NOTE | 2025-03-03 16:30 | OPREHPOC ---
Outpatient Therapy Plan of Care This is a Multidisciplinary Plan of Care that may contain components documented by all disciplines (PT, OT, and ST.) PT Problem 1 PT Problem #1 Knowledge Deficit PT Goal 1 Goal / Goal Update [place] with HEP Target Visit 4 Progress Met PT Goal 2 Goal / Goal Update Report no shoulder pain greater than 1/10 for 2 consecutive weeks Target Visit 6 Progress Met PT Problem 2 PT Problem #2 Impaired Range of Motion PT Goal 1 Goal / Goal Update 1. Achieve 175 degrees of pain free shoulder flexion ROM [place] 2. demonstrate ability to reach behind head pain free with left arm Target Visit 6 Progress Met PT Problem 3 PT Problem #3 Impaired Strength PT Goal 1 Goal / Goal Update 1. Demonstrate 5/5 L shoulder strength for stabilization with ADL performance Target Visit 6 Progress Met
--- NOTE | 2025-03-03 16:30 | PTOPDC ---
Assessment and note entered by Erick Narayanan, PT Evaluation Information Assessment Status Progress Diagnosis S43.432A- Labral lesion of left shoulder ICD-10 Condition Codes (PT) Pain in left shoulder M25.512 Onset December 2024 Subjective Information Reports that at this point his pain is not too bad . Feels that it is not necessarily a pain but an internal tightness in the shoulder. Feels comfortable with [facility] and will continue independently. Reported Pain Level Pain Score 1: Self Report Pain Score 2: Self Report Assessment PT Clinical Summary Patient met all goals for therapy and is suitable for discharge to [facility] at this time. Will continue progressive strengthening of affected shoulder for usp stabilization. Plan of Care PT Services Indicated Yes
== END 2025-03-04 08:31 | disposition home or self-care (01) ==
LOC: ANHGOSHPT 15:30
PROVIDERS: PCP Clinical Nurse Specialist; Visit Provider Orthopaedic Surgery
DX: S43.432A Superior glenoid labrum lesion of left shoulder, initial encounter (principal); M75.22 Bicipital tendinitis, left shoulder
CPT/HCPCS: 97110; 97112; 97140; 97161; 97530